=== PATIENT | male | born 1960 | race Caucasian/White ===

== ENCOUNTER 2021-01-01 11:31 | Inpatient (IN) | payer OTHER ==
[2021-01-01] MEDS ORDERED: Ondansetron 4 MG/2 ML SDV IVPUSH ONE (11:56)
[2021-01-01] MEDS ORDERED: Sodium Chloride 0.9% 1,000 ML IV ONE ×2 (11:56→14:31)
[2021-01-01] MEDS ORDERED: Ketorolac 30 MG/ML SDV IVPUSH ONE (11:56)
[2021-01-01] MEDS ORDERED: Morphine 4 MG/ML Syringe IVPUSH ONE (11:57)
--- NOTE | 2021-01-01 11:59 | PCM.EKG ---
#1 Interpretation EKG Date: 01/01/21 Time: 11:54 Rhythm: Other (sinus cliff) Rate (Beats/Min): 46 ST-T: Normal
--- NOTE | 2021-01-01 12:08 | EDM.PDOC ---
ED HPI GENERAL MEDICAL PROBLEM - General Chief Complaint: Abdominal Pain Stated Complaint: [facility] REF[facility] Time Seen by Provider: 01/01/21 11:31 Source of Information: Reports: Patient History Limitations: Reports: No Limitations - History of Present Illness INITIAL COMMENTS - FREE TEXT/NARRATIVE: HISTORY AND PHYSICAL: History of present illness: Patient is a 60-year-old male who presents to the ED today with concern of upper abdominal cramping that has been constant for 8 days and unable to eat/drink x 2 days due to pain and nausea. Patient states the cramping comes in waves and states that the pain is more intense with laying flat and better when sitting up. Patient states that when he leans over the counter is the most comfortable position he can get and so has been sleeping this way since 8 days ago. Patient states 8 days ago he was told he has diabetes and was started on insulin and Metformin as his sugar was 600 when he was evaluated at the emergency room at [facility] in [place]. Patient states that he was admitted overnight to get his blood sugars down and discharged on insulin and Metformin. Patient states that he thinks the Metformin is what is causing his issues. Patient states that he initially did have diarrhea when he had for start of Metformin, but this has improved but continues to have the upper abdominal cramping. Patient states the cramping results in a significantly decreased appetite and feeling nauseous but states that he has not vomited. Patient states the cramping will radiate to the back. Patient does not drink alcohol or use any substances. Patient denies fever, chills, chest pain, shortness of breath, or cough. Denies headache, neck stiff ness, change in vision, syncope, or near syncope. Denies vomiting, diarrhea, constipation, or dysuria. Has not noted any blood in urine or stool. Review of systems: As per history of present illness and below otherwise all systems reviewed and negative. Past medical history: As per history of present illness and as reviewed below otherwise noncontributory. Surgical history: As per history of present illness and as reviewed below otherwise noncontributory. Social history: See social history for further information Family history: As per history of present illness and as reviewed below otherwise noncontributory. Physical exam: General: Patient is alert, oriented, and in no acute distress. Patient laying comfortably on exam table, tired appearing, bradycardic 50bmp on exam otherwise vitally stable and reviewed by me. HEENT: Atraumatic, normocephalic, pupils equal and reactive bilaterally, negative for conjunctival pallor or scleral icterus, mucous membranes moist, TMs normal bilaterally, throat clear, neck supple, nontender, trachea midline. No drooling or trismus noted. No meningeal signs. No hot potato voice noted. Lungs: Clear to auscultation, breath sounds equal bilaterally, chest nontender. Heart: S1S2, regular rate and rhythm without overt murmur Abdomen: Exam of abdomen is limited due to body habitus. Otherwise, soft, nondistended, moderate epigastric tenderness on exam. Negative for masses or hepatosplenomegaly. Negative for costovertebral tenderness. Pelvis: Stable nontender. Genitourinary: Deferred. Rectal: Deferred. Skin: Intact, warm, dry. No lesions or rashes noted. Extremities: Atraumatic, negative for cords or calf pain. Neurovascular unremarkable. Neuro: Awake, alert, oriented. Cranial nerves II through XII unremarkable. Cerebellum unremarkable. Motor and sensory unremarkable throughout. Exam nonfocal. Notes: Upon arrival to the ED, patient is alert, and in no acute distress but he is tired appearing. He is bradycardic 45 to 50 bpm on exam but is otherwise vitally stable and asymptomatic for bradycardia. Patient does have moderate epigastric tenderness to palpation on exam. See Dr. Sosa's dictation for specific EKG interpretation. However, sinus bradycardia with no STEMI or acute signs of ischemia will perform cardiac evaluation as well as lipase and scan of patient's abdomen and pelvis. CBC is unremarkable, CMP is unremarkable. Lipase and amylase are normal. Urinalysis is clear for signs of infection. Troponin is negative. Abdominal pelvic CT scan does show peripancreatic fat stranding adjacent to the head of the pancreas with thickening of the adjacent duodenum. Findings consistent with pancreatitis. Hepatomegaly with hepatic steatosis. Patient has been unable to tolerate p.o. intake for 2 days so recommend admission to patient. He is agreeable. I did call and speak to Dr. Birch, hospitalist on-call, and thoroughly discussed patient's case. Will admit to inpatient on telemetry. Voices understanding and is agreeable to plan of care. Denies any further questions or concerns at this time. Diagnostics: EKG, CBC, CMP, UA, Lipase, Amylase, Trop, CXR, Abd/Pelvic W cont, COVID Therapeutics: NS, Zofran, Toradol, Morphine (patient has an allergy noted to codeine but states that he is taking morphine safely in the past), Dilaudid Impression: Acute pancreatitis Sinus bradycardia, asymptomatic Plan: Admit to observation and Dr. Birch on telemetry Definitive disposition and diagnosis as appropriate pending reevaluation and review of above. Upper Abdominal Pain Score (Numeric/FACES): 10 - Related Data Allergies Allergy/AdvReac Type Severity Reaction Status Date / Time codeine Allergy Vomiting Verified 01/01/21 16:31 Home Meds: Home Meds Insulin Detemir [Levemir] 1 injection SQ ASDIRECTED 01/01/21 [History] Losartan [Cozaar] 1 tab PO DAILY 01/01/21 [History] atenoloL [Atenolol] 1 tab PO DAILY 01/01/21 [History] Past Medical History Cardiovascular History: Reports: Hypertension Musculoskeletal History: Reports: Gout Endocrine/Metabolic History: Reports: Diabetes, Type II Social & Family History - Family History Family Medical History: No Pertinent Family History - Tobacco Use Tobacco Use Status *Q: Never Tobacco User - Recreational Drug Use Recreational Drug Use: No ED ROS GENERAL - Review of Systems Review Of Systems: Comprehensive ROS is negative, except as noted in HPI. ED EXAM, GENERAL - Physical Exam Exam: See Below (see dictation) Course - Vital Signs Last Recorded V/S: Last Vital Signs Temp 98.4 F 01/01/21 16:06 Pulse 45 L 01/01/21 16:06 Resp 15 01/01/21 16:06 BP 137/80 01/01/21 16:06 Pulse Ox 95 01/01/21 16:55 - Orders/Labs/Meds Orders: Active Orders 24 hr Category Date Time Status Admission Status [Patient Status] [ADT] Stat ADT 01/01/21 14:18 Active Medication Orders Dextrose/Water (50% Dextrose In Water 50 Ml Syringe) 50 ml IV ASDIRECTED PRN PRN Reason: Hypoglycemia Glucagon (Glucagon,Human Recombinant 1 Mg Vial) 1 mg IM ASDIRECTED PRN PRN Reason: Hypoglycemia Heparin Sodium (Porcine) (Heparin Sodium 5,000 Units/Ml Vial) 5,000 units SUBCUT Q8H YOUSUF Hydromorphone HCl (Hydromorphone 2 Mg/Ml Syringe) 1 mg IVPUSH Q3H PRN PRN Reason: Pain (severe 7-10) Lactated Ringer's (Ringers, Lactated) 1,000 mls @ 999 mls/hr IV ONETIME ONE Stop: 01/01/21 17:30 Lactated Ringer's (Ringers, Lactated) 1,000 mls @ 200 mls/hr IV Q5H YOUSUF Pantoprazole Sodium 40 mg/ (Sodium Chloride) 10 mls @ 200 mls/hr IV Q24H YOUSUF Insulin Aspart (Insulin Aspart 100 Units/Ml 3 Ml Pen) 0 unit SUBCUT Q6H YOUSUF; Protocol Ondansetron HCl (Ondansetron 4 Mg/2 Ml Sdv) 4 mg IVPUSH Q4H PRN PRN Reason: Nausea Sodium Chloride (Sodium Chloride 0.9% 2.5 Ml Syringe) 2.5 ml FLUSH ASDIRECTED PRN PRN Reason: Keep Vein Open Labs: Laboratory Tests 01/01/21 01/01/21 01/01/21 Range/Units 11:47 11:48 11:48 WBC 7.62 (4.0-11.0) K/uL RBC 4.86 (4.50-5.90) M/uL Hgb 15.1 (13.0-17.0) g/dL Hct 42.7 (38.0-50.0) % MCV 87.9 (80.0-98.0) fL MCH 31.1 (27.0-32.0) pg MCHC 35.4 (31.0-37.0) g/dL RDW Std Deviation 39.7 (28.0-62.0) fl RDW Coeff of Len 12 (11.0-15.0) % Plt Count 372 (150-400) K/uL MPV 9.90 (7.40-12.00) fL Neut % (Auto) 58.8 (48.0-80.0) % Lymph % (Auto) 26.6 (16.0-40.0) % [place] % (Auto) 11.2 (0.0-15.0) % Eos % (Auto) 3.1 (0.0-7.0) % Baso % (Auto) 0.3 (0.0-1.5) % Neut # (Auto) 4.5 (1.4-5.7) K/uL Lymph # (Auto) 2.0 (0.6-2.4) K/uL [place] # (Auto) 0.9 H (0.0-0.8) K/uL Eos # (Auto) 0.2 (0.0-0.7) K/uL Baso # (Auto) 0.0 (0.0-0.1) K/uL Nucleated RBC % 0.0 /100WBC Nucleated RBCs # 0 K/uL Sodium 136 (136-148) mmol/L Potassium 3.7 (3.5-5.1) mmol/L Chloride 99 (98-107) mmol/L Carbon Dioxide 30.4 (21.0-32.0) mmol/L BUN 14 (7.0-18.0) mg/dL Creatinine 1.1 (0.8-1.3) mg/dL Est Cr Clr Drug Dosing 67.60 mL/min Estimated GFR (MDRD) > 60.0 ml/min Glucose 183 H (74-106) mg/dL POC Glucose 167 H (70-99) mg/dL Calcium 9.1 (8.5-10.1) mg/dL Total Bilirubin 0.6 (0.2-1.0) mg/dL AST 35 (15-37) IU/L ALT 54 (14-63) IU/L Alkaline Phosphatase 113 (46-116) U/L Troponin I < 0.050 (0.000-0.056) ng/mL Total Protein 7.9 (6.4-8.2) g/dL Albumin 3.3 L (3.4-5.0) g/dL Globulin 4.6 H (2.6-4.0) g/dL Albumin/Globulin Ratio 0.7 L (0.9-1.6) Triglycerides (0-200) mg/dL Cholesterol (50-200) mg/dL LDL Cholesterol, Calc (60-180) mg/dL VLDL Cholesterol (5-55) mg/dL HDL Cholesterol (40-60) mg/dL Cholesterol/HDL Ratio (3.3-6.0) Amylase (25-115) U/L Lipase 103 (73-393) U/L Urine Color Urine Appearance Urine pH (5.0-8.0) Ur Specific [place] (1.001-1.035) Urine Protein (NEGATIVE) mg/dL Urine Glucose (UA) (NEGATIVE) mg/dL Urine Ketones (NEGATIVE) mg/dL Urine Occult Blood (NEGATIVE) Urine Nitrite (NEGATIVE) Urine Bilirubin (NEGATIVE) Urine Urobilinogen (<2.0) EU/dL Ur Leukocyte Esterase (NEGATIVE) Influenza Type A RNA (NEGATIVE) Influenza Type B RNA (NEGATIVE) SARS-CoV-2 RNA (YOSELIN) (NEGATIVE) 01/01/21 01/01/21 01/01/21 Range/Units 11:48 11:48 13:30 WBC (4.0-11.0) K/uL RBC (4.50-5.90) M/uL Hgb (13.0-17.0) g/dL Hct (38.0-50.0) % MCV (80.0-98.0) fL MCH (27.0-32.0) pg MCHC (31.0-37.0) g/dL RDW Std Deviation (28.0-62.0) fl RDW Coeff of Len (11.0-15.0) % Plt Count (150-400) K/uL MPV (7.40-12.00) fL Neut % (Auto) (48.0-80.0) % Lymph % (Auto) (16.0-40.0) % [place] % (Auto) (0.0-15.0) % Eos % (Auto) (0.0-7.0) % Baso % (Auto) (0.0-1.5) % Neut # (Auto) (1.4-5.7) K/uL Lymph # (Auto) (0.6-2.4) K/uL [place] # (Auto) (0.0-0.8) K/uL Eos # (Auto) (0.0-0.7) K/uL Baso # (Auto) (0.0-0.1) K/uL Nucleated RBC % /100WBC Nucleated RBCs # K/uL Sodium (136-148) mmol/L Potassium (3.5-5.1) mmol/L Chloride (98-107) mmol/L Carbon Dioxide (21.0-32.0) mmol/L BUN (7.0-18.0) mg/dL Creatinine (0.8-1.3) mg/dL Est Cr Clr Drug Dosing mL/min Estimated GFR (MDRD) ml/min Glucose (74-106) mg/dL POC Glucose (70-99) mg/dL Calcium (8.5-10.1) mg/dL Total Bilirubin (0.2-1.0) mg/dL AST (15-37) IU/L ALT (14-63) IU/L Alkaline Phosphatase (46-116) U/L Troponin I (0.000-0.056) ng/mL Total Protein (6.4-8.2) g/dL Albumin (3.4-5.0) g/dL Globulin (2.6-4.0) g/dL Albumin/Globulin Ratio (0.9-1.6) Triglycerides 149 (0-200) mg/dL Cholesterol 209 H (50-200) mg/dL LDL Cholesterol, Calc 141 (60-180) mg/dL VLDL Cholesterol 29 (5-55) mg/dL HDL Cholesterol 38 L (40-60) mg/dL Cholesterol/HDL Ratio 5.5 (3.3-6.0) Amylase 38 (25-115) U/L Lipase (73-393) U/L Urine Color YELLOW Urine Appearance CLEAR Urine pH 8.5 H (5.0-8.0) Ur Specific [place] 1.010 (1.001-1.035) Urine Protein NEGATIVE (NEGATIVE) mg/dL Urine Glucose (UA) NEGATIVE (NEGATIVE) mg/dL Urine Ketones NEGATIVE (NEGATIVE) mg/dL Urine Occult Blood NEGATIVE (NEGATIVE) Urine Nitrite NEGATIVE (NEGATIVE) Urine Bilirubin NEGATIVE (NEGATIVE) Urine Urobilinogen 0.2 (<2.0) EU/dL Ur Leukocyte Esterase NEGATIVE (NEGATIVE) Influenza Type A RNA (NEGATIVE) Influenza Type B RNA (NEGATIVE) SARS-CoV-2 RNA ([place]) (NEGATIVE) 01/01/21 Range/Units 14:26 WBC (4.0-11.0) K/uL RBC (4.50-5.90) M/uL Hgb (13.0-17.0) g/dL Hct (38.0-50.0) % MCV (80.0-98.0) fL MCH (27.0-32.0) pg MCHC (31.0-37.0) g/dL RDW Std Deviation (28.0-62.0) fl RDW Coeff of Len (11.0-15.0) % Plt Count (150-400) K/uL MPV (7.40-12.00) fL Neut % (Auto) (48.0-80.0) % Lymph % (Auto) (16.0-40.0) % [place] % (Auto) (0.0-15.0) % Eos % (Auto) (0.0-7.0) % Baso % (Auto) (0.0-1.5) % Neut # (Auto) (1.4-5.7) K/uL Lymph # (Auto) (0.6-2.4) K/uL [place] # (Auto) (0.0-0.8) K/uL Eos # (Auto) (0.0-0.7) K/uL Baso # (Auto) (0.0-0.1) K/uL Nucleated RBC % /100WBC Nucleated RBCs # K/uL Sodium (136-148) mmol/L Potassium (3.5-5.1) mmol/L Chloride (98-107) mmol/L Carbon Dioxide (21.0-32.0) mmol/L BUN (7.0-18.0) mg/dL Creatinine (0.8-1.3) mg/dL Est Cr Clr Drug Dosing mL/min Estimated GFR (MDRD) ml/min Glucose (74-106) mg/dL POC Glucose (70-99) mg/dL Calcium (8.5-10.1) mg/dL Total Bilirubin (0.2-1.0) mg/dL AST (15-37) IU/L ALT (14-63) IU/L Alkaline Phosphatase (46-116) U/L Troponin I (0.000-0.056) ng/mL Total Protein (6.4-8.2) g/dL Albumin (3.4-5.0) g/dL Globulin (2.6-4.0) g/dL Albumin/Globulin Ratio (0.9-1.6) Triglycerides (0-200) mg/dL Cholesterol (50-200) mg/dL LDL Cholesterol, Calc (60-180) mg/dL VLDL Cholesterol (5-55) mg/dL HDL Cholesterol (40-60) mg/dL Cholesterol/HDL Ratio (3.3-6.0) Amylase (25-115) U/L Lipase (73-393) U/L Urine Color Urine Appearance Urine pH (5.0-8.0) Ur Specific [place] (1.001-1.035) Urine Protein (NEGATIVE) mg/dL Urine Glucose (UA) (NEGATIVE) mg/dL Urine Ketones (NEGATIVE) mg/dL Urine Occult Blood (NEGATIVE) Urine Nitrite (NEGATIVE) Urine Bilirubin (NEGATIVE) Urine Urobilinogen (<2.0) EU/dL Ur Leukocyte Esterase (NEGATIVE) Influenza Type A RNA NEGATIVE (NEGATIVE) Influenza Type B RNA NEGATIVE (NEGATIVE) SARS-CoV-2 RNA ([place]IN) NEGATIVE (NEGATIVE) Meds: Medications Generic Name Dose Route Start Last Admin Trade Name Freq PRN Reason Stop Dose Admin Dextrose/Water 50 ml 01/01/21 16:09 50% Dextrose In Water 50 Ml Syringe IV ASDIRECTED PRN Hypoglycemia Glucagon 1 mg 01/01/21 16:09 Glucagon,Human Recombinant 1 Mg Vial IM ASDIRECTED PRN Hypoglycemia Heparin Sodium (Porcine) 5,000 units 01/01/21 16:30 Heparin Sodium 5,000 Units/Ml Vial SUBCUT Q8H YOUSUF Hydromorphone HCl 1 mg 01/01/21 16:05 Hydromorphone 2 Mg/Ml Syringe IVPUSH Q3H PRN Pain (severe 7-10) Lactated Ringer's 1,000 mls @ 999 mls/hr 01/01/21 16:30 Ringers, Lactated IV 01/01/21 17:30 ONETIME ONE Lactated Ringer's 1,000 mls @ 200 mls/hr 01/01/21 17:30 Ringers, Lactated IV Q5H YOUSUF Pantoprazole Sodium 40 mg/ 10 mls @ 200 mls/hr 01/01/21 16:45 Sodium Chloride IV Q24H YOUSUF Insulin Aspart 0 unit 01/01/21 18:00 Insulin Aspart 100 Units/Ml 3 Ml Pen SUBCUT Q6H YOUSUF Protocol Ondansetron HCl 4 mg 01/01/21 16:05 Ondansetron 4 Mg/2 Ml Sdv IVPUSH Q4H PRN Nausea Sodium Chloride 2.5 ml 01/01/21 16:05 Sodium Chloride 0.9% 2.5 Ml Syringe FLUSH ASDIRECTED PRN Keep Vein Open Discontinued Medications Generic Name Dose Route Start Last Admin Trade Name Analilia PRN Reason Stop Dose Admin Hydromorphone HCl 0.5 mg 01/01/21 14:31 01/01/21 14:40 Hydromorphone 2 Mg/Ml Syringe IVPUSH 01/01/21 14:32 0.5 mg ONETIME ONE Administration Sodium Chloride 1,000 mls @ 999 mls/hr 01/01/21 11:56 01/01/21 12:08 Normal Saline IV 01/01/21 12:56 999 mls/hr BOLUS ONE Administration Sodium Chloride 1,000 mls @ 999 mls/hr 01/01/21 14:31 01/01/21 14:40 Normal Saline IV 01/01/21 15:31 999 mls/hr STAT ONE Administration Ketorolac Tromethamine 30 mg 01/01/21 11:56 01/01/21 12:08 Ketorolac 30 Mg/Ml Sdv IVPUSH 01/01/21 11:57 30 mg ONETIME ONE Administration Morphine Sulfate 4 mg 01/01/21 11:57 01/01/21 12:08 Morphine 4 Mg/Ml Syringe IVPUSH 01/01/21 11:58 4 mg ONETIME ONE Administration Ondansetron HCl 4 mg 01/01/21 11:56 01/01/21 12:08 Ondansetron 4 Mg/2 Ml Sdv IVPUSH 01/01/21 11:57 4 mg ONETIME ONE Administration Departure - Departure Time of Disposition: 14:34 Disposition: Admitted As Inpatient 67 Clinical Impression: Sinus bradycardia Acute pancreatitis Qualifiers: Pancreatitis type: unspecified pancreatitis type Acute pancreatitis complication: unspecified Qualified Code(s): K85.90 - Acute pancreatitis without necrosis or infection, unspecified - Discharge Information Sepsis Event Note (ED) - Evaluation Sepsis Screening Result: No Definite Risk - Focused Exam Vital Signs: Vital Signs Temp Pulse Resp BP Pulse Ox 01/01/21 15:06 58 L 17 144/64 H 96 01/01/21 14:32 49 L 17 128/66 98 01/01/21 13:48 50 L 16 134/70 97 01/01/21 13:21 47 L 17 139/76 96 01/01/21 12:26 46 L 18 126/82 95 01/01/21 11:51 97.3 F 48 L 17 162/81 H 95 - My Orders Last 24 Hours: My Active Orders 01/01/21 14:18 Admission Status [Patient Status] [ADT] Stat - Assessment/Plan Last 24 Hours: My Active Orders 01/01/21 14:18 Admission Status [Patient Status] [ADT] Stat
[2021-01-01 12:33] LABS: BLOOD UREA NITROGEN,BUN 14 mg/dL (7.0-18.0); CARBON DIOXIDE,CO2 30.4 mmol/L (21.0-32.0); CHLORIDE,CL 99 mmol/L (98-107); GLUCOSE RANDOM 183 mg/dL (74-106); LIPASE 103 U/L (73-393); POTASSIUM,K 3.7 mmol/L (3.5-5.1); SODIUM,NA 136 mmol/L (136-148)
--- NOTE | 2021-01-01 13:08 | CR ---
INDICATION: epigastric pain TECHNIQUE: Chest 1 view. COMPARISON: 10/28/19 FINDINGS: Cardiovascular and mediastinum: Heart size and vasculature are normal in caliber and appearance. Mediastinum is within normal limits. Lungs and pleural space: Lungs are clear. No sign of infiltrate or mass. No sign of pleural effusion. No pneumothorax. Bones and soft tissues: No significant findings. IMPRESSION: Unremarkable chest. Dictated by: Carlos Pinto MD @ 01/01/2021 13:06:24 (Electronically Signed)
--- NOTE | 2021-01-01 13:50 | CT ---
INDICATION: Upper abdominal pain x8 days TECHNIQUE: CT abdomen and pelvis acquired with IV contrast. 100 cc Isovue 370 COMPARISON: None FINDINGS: Lower chest: Unremarkable. Liver: Hepatomegaly with hepatic steatosis. Spleen: Unremarkable. Pancreas: Peripancreatic fat passing adjacent to the pancreatic head with thickening of the adjacent duodenum. Findings consistent with pancreatitis. Correlate with abnormal amylase and lipase. Gallbladder and bile ducts: Unremarkable. Kidneys: Unremarkable. Adrenal glands: Unremarkable. GI tract: Thickening of 2nd portion of duodenum. Appendix is normal. Vascular structures: Unremarkable. Lymph nodes: Unremarkable. Miscellaneous: Unremarkable. No free air or significant free fluid. Pelvic Organs: Unremarkable. Bones: Unremarkable for age. IMPRESSION: Peripancreatic fat stranding adjacent to the head of the pancreas with thickening of the adjacent duodenum. Findings consistent with pancreatitis. Correlate with abnormal amylase lipase. Hepatomegaly with hepatic steatosis. Please note that all CT scans at this facility use dose modulation, iterative reconstruction, and/or weight-based dosing when appropriate to reduce radiation dose to as low as reasonably achievable. Dictated by Carlos Pinto MD @ 01/01/2021 1:48:[address] Carlos Pinto @ Jan 01 2021 1:48PM
[2021-01-01] MEDS ORDERED: HYDROmorphone 2 MG/ML Syringe IVPUSH ONE (14:31)
[2021-01-01 15:12] LABS: CORONAVIRUS COVID-19 NAA NEGATIVE (NEGATIVE); INFLUENZA A NAA NEGATIVE (NEGATIVE); INFLUENZA B NAA NEGATIVE (NEGATIVE)
--- NOTE | 2021-01-01 15:55 | PCM.HP.2 ---
H&P History of Present Illness - General Date of Service: 01/01/21 Admit Problem/Dx: Admission Diagnosis/Problem Admission Diagnosis/Problem Acute pancreatitis Source of Information: Patient History Limitations: Reports: No Limitations - History of Present Illness Initial Comments - Free Text/Narative: This 60-year-old male with past medical history of HTN, gout and diabetes type 2 presented to the ED with complaints of upper abdominal cramping has been constant for about 8 days. He has been unable to eat or drink for the past 2 days due to pain and nausea. He reports the pain is coming in waves of cramping and that is more intense with laying flat and better when sitting up. He is a new diabetic and was placed on insulin and Metformin as his blood sugar was over 600 and was evaluated in [place]. He feels as though the Metformin is causing these concerns. He did report he had diarrhea initially and then the pain started. He reports he has had a decrease in appetite and feeling nauseated but has not vomited. He denies any fevers chills, chest pain, shortness of breath or cough. He denies any headache. Denies any diarrhea constipation dysuria or black or bloody stools. Reports that he does not drink and has not drink for 12 years. No tobacco use and no recreational drug use. In the ER lab work otherwise unremarkable blood sugar slightly elevated. Lipid panel obtained which shows triglycerides 149 total cholesterol 209 LDL 141 HDL 38, lipase 103 amylase 38. No transaminitis or hyperbilirubinemia noted. BUN and creatinine stable mild hyperglycemia noted at 183. UA negative Covid and influenza swab negative. CT of the abdomen pelvis was obtained which revealed thickening second portion of the duodenum peripancreatic fat adjacent to the pancreatic head with thickening of adjacent duodenum hepatomegaly with hepatic steatosis noted. Findings suggestive of acute pancreatitis. Chest x-ray obtained which reveals no acute cardiopulmonary process. Vital signs in the ER blood pressure is otherwise stable heart rate noted to be high 40s to 50s. Patient is on atenolol 50 mg daily. Patient denies any associated symptoms or dizziness with his heart rate. He was treated with 2 L normal saline boluses along with Toradol morphine Zofran and Dilaudid for pain control. He will be admitted for acute pancreatitis. PCP [facility] Upper Abdominal Pain Score (Numeric/FACES): 10 - Related Data Allergies/Adverse Reactions: Allergies Allergy/AdvReac Type Severity Reaction Status Date / Time codeine Allergy Vomiting Verified 01/01/21 11:51 Home Medications: Home Meds Insulin Detemir [Levemir] 1 injection SQ ASDIRECTED 01/01/21 [History] Losartan [Cozaar] 1 tab PO DAILY 01/01/21 [History] atenoloL [Atenolol] 1 tab PO DAILY 01/01/21 [History] metFORMIN [Glucophage] 500 mg PO BID 01/01/21 [History] Past Medical History Cardiovascular History: Reports: Hypertension. Denies: Afib, Blood Clots/V TE/DVT, CAD Respiratory History: Reports: None Gastrointestinal History: Reports: None Genitourinary History: Reports: None Musculoskeletal History: Reports: Gout Neurological History: Reports: None. Denies: CVA Endocrine/Metabolic History: Reports: Diabetes, Type II, Hypothyroidism, Obesity/BMI 30+ - Infectious Disease History Infectious Disease History: Reports: None - Past Surgical History Cardiovascular Surgical History: Reports: None Respiratory Surgical History: Reports: None GI Surgical History: Reports: None Male Surgical History: Reports: None Endocrine Surgical History: Reports: None Musculoskeletal Surgical History: Reports: None Social & Family History - Family History Cardiac: Reports: [place] (Father of [place] in his 50s) GI: Denies: Cholelithiasis - Tobacco Use Tobacco Use Status *Q: Never Tobacco User - Alcohol Use Alcohol Use History: No - Recreational Drug Use Recreational Drug Use: No - Living Situation & Occupation Living situation: Reports: Occupation: Employed H&P Review of Systems - Review of Systems: Review Of Systems: See Below General: Reports: Malaise. Denies: Fever, Chills HEENT: Reports: No Symptoms. Denies: Headaches, Sinus Congestion, Sore Throat, Vertigo Pulmonary: Reports: No Symptoms. Denies: Shortness of Breath Cardiovascular: Reports: No Symptoms. Denies: Chest Pain Gastrointestinal: Reports: Abdominal Pain (Epigastric), Decreased Appetite, Distension, Nausea. Denies: Black Stool, Bloody Stool, Constipation, Diarrhea, Vomiting Genitourinary: Reports: No Symptoms. Denies: Dysuria, Frequency, Burning Musculoskeletal: Reports: No Symptoms. Denies: Neck Pain Skin: Reports: No Symptoms. Denies: Wound Psychiatric: Reports: No Symptoms Neurological: Reports: No Symptoms Hematologic/Lymphatic: Reports: No Symptoms Immunologic: Reports: No Symptoms Exam - Exam Exam: See Below - Vital Signs Vital Signs: Last Vital Signs Temp 97.3 F 01/01/21 11:51 Pulse 49 L 01/01/21 15:39 Resp 17 01/01/21 15:06 BP 157/55 H 01/01/21 15:39 Pulse Ox 96 01/01/21 15:39 Weight: 127.006 kg - Exam Quality Assessment: No: Supplemental Oxygen General: Alert, Oriented, Cooperative, Mild Distress (Mild abdominal pain) HEENT: Conjunctiva Clear, Posterior Pharynx Clear. No: Mucosa Moist & [place] (Dry) Neck: Supple, Trachea Midline Lungs: Clear to Auscultation, Normal Respiratory Effort Cardiovascular: Regular Rate, Regular Rhythm GI/Abdominal Exam: Normal Bowel Sounds, Soft, Distended, Tender (Epigastric) Back Exam: Normal Inspection, Full Range of Motion Extremities: Normal Inspection, Normal Range of Motion, Non-Tender, No Pedal Edema Neuro Extensive - Mental Status: Alert, Oriented x3 Neuro Extensive - Motor, Sensory, Reflexes: CN II-XII Intact Psychiatric: Alert, Normal Affect, Normal Mood - Patient Data Lab Results Last 24 hrs: Laboratory Results - last 24 hr 01/01/21 01/01/21 01/01/21 Range/Units 11:47 11:48 11:48 WBC 7.62 (4.0-11.0) K/uL RBC 4.86 (4.50-5.90) M/uL Hgb 15.1 (13.0-17.0) g/dL Hct 42.7 (38.0-50.0) % MCV 87.9 (80.0-98.0) fL MCH 31.1 (27.0-32.0) pg MCHC 35.4 (31.0-37.0) g/dL RDW Std Deviation 39.7 (28.0-62.0) fl RDW Coeff of Len 12 (11.0-15.0) % Plt Count 372 (150-400) K/uL MPV 9.90 (7.40-12.00) fL Neut % (Auto) 58.8 (48.0-80.0) % Lymph % (Auto) 26.6 (16.0-40.0) % [place] % (Auto) 11.2 (0.0-15.0) % Eos % (Auto) 3.1 (0.0-7.0) % Baso % (Auto) 0.3 (0.0-1.5) % Neut # (Auto) 4.5 (1.4-5.7) K/uL Lymph # (Auto) 2.0 (0.6-2.4) K/uL [place] # (Auto) 0.9 H (0.0-0.8) K/uL Eos # (Auto) 0.2 (0.0-0.7) K/uL Baso # (Auto) 0.0 (0.0-0.1) K/uL Nucleated RBC % 0.0 /100WBC Nucleated RBCs # 0 K/uL Sodium 136 (136-148) mmol/L Potassium 3.7 (3.5-5.1) mmol/L Chloride 99 (98-107) mmol/L Carbon Dioxide 30.4 (21.0-32.0) mmol/L BUN 14 (7.0-18.0) mg/dL Creatinine 1.1 (0.8-1.3) mg/dL Est Cr Clr Drug Dosing 67.60 mL/min Estimated GFR (MDRD) > 60.0 ml/min Glucose 183 H (74-106) mg/dL POC Glucose 167 H (70-99) mg/dL Calcium 9.1 (8.5-10.1) mg/dL Total Bilirubin 0.6 (0.2-1.0) mg/dL AST 35 (15-37) IU/L ALT 54 (14-63) IU/L Alkaline Phosphatase 113 (46-116) U/L Troponin I < 0.050 (0.000-0.056) ng/mL Total Protein 7.9 (6.4-8.2) g/dL Albumin 3.3 L (3.4-5.0) g/dL Globulin 4.6 H (2.6-4.0) g/dL Albumin/Globulin Ratio 0.7 L (0.9-1.6) Triglycerides (0-200) mg/dL Cholesterol (50-200) mg/dL LDL Cholesterol, Calc (60-180) mg/dL VLDL Cholesterol (5-55) mg/dL HDL Cholesterol (40-60) mg/dL Cholesterol/HDL Ratio (3.3-6.0) Amylase (25-115) U/L Lipase 103 (73-393) U/L Urine Color Urine Appearance Urine pH (5.0-8.0) Ur Specific [place] (1.001-1.035) Urine Protein (NEGATIVE) mg/dL Urine Glucose (UA) (NEGATIVE) mg/dL Urine Ketones (NEGATIVE) mg/dL Urine Occult Blood (NEGATIVE) Urine Nitrite (NEGATIVE) Urine Bilirubin (NEGATIVE) Urine Urobilinogen (<2.0) EU/dL Ur Leukocyte Esterase (NEGATIVE) Influenza Type A RNA (NEGATIVE) Influenza Type B RNA (NEGATIVE) SARS-CoV-2 RNA ([place]) (NEGATIVE) 01/01/21 01/01/21 01/01/21 Range/Units 11:48 11:48 13:30 WBC (4.0-11.0) K/uL RBC (4.50-5.90) M/uL Hgb (13.0-17.0) g/dL Hct (38.0-50.0) % MCV (80.0-98.0) fL MCH (27.0-32.0) pg MCHC (31.0-37.0) g/dL RDW Std Deviation (28.0-62.0) fl RDW Coeff of Len (11.0-15.0) % Plt Count (150-400) K/uL MPV (7.40-12.00) fL Neut % (Auto) (48.0-80.0) % Lymph % (Auto) (16.0-40.0) % [place] % (Auto) (0.0-15.0) % Eos % (Auto) (0.0-7.0) % Baso % (Auto) (0.0-1.5) % Neut # (Auto) (1.4-5.7) K/uL Lymph # (Auto) (0.6-2.4) K/uL [place] # (Auto) (0.0-0.8) K/uL Eos # (Auto) (0.0-0.7) K/uL Baso # (Auto) (0.0-0.1) K/uL Nucleated RBC % /100WBC Nucleated RBCs # K/uL Sodium (136-148) mmol/L Potassium (3.5-5.1) mmol/L Chloride (98-107) mmol/L Carbon Dioxide (21.0-32.0) mmol/L BUN (7.0-18.0) mg/dL Creatinine (0.8-1.3) mg/dL Est Cr Clr Drug Dosing mL/min Estimated GFR (MDRD) ml/min Glucose (74-106) mg/dL POC Glucose (70-99) mg/dL Calcium (8.5-10.1) mg/dL Total Bilirubin (0.2-1.0) mg/dL AST (15-37) IU/L ALT (14-63) IU/L Alkaline Phosphatase (46-116) U/L Troponin I (0.000-0.056) ng/mL Total Protein (6.4-8.2) g/dL Albumin (3.4-5.0) g/dL Globulin (2.6-4.0) g/dL Albumin/Globulin Ratio (0.9-1.6) Triglycerides 149 (0-200) mg/dL Cholesterol 209 H (50-200) mg/dL LDL Cholesterol, Calc 141 (60-180) mg/dL VLDL Cholesterol 29 (5-55) mg/dL HDL Cholesterol 38 L (40-60) mg/dL Cholesterol/HDL Ratio 5.5 (3.3-6.0) Amylase 38 (25-115) U/L Lipase (73-393) U/L Urine Color YELLOW Urine Appearance CLEAR Urine pH 8.5 H (5.0-8.0) Ur Specific [place] 1.010 (1.001-1.035) Urine Protein NEGATIVE (NEGATIVE) mg/dL Urine Glucose (UA) NEGATIVE (NEGATIVE) mg/dL Urine Ketones NEGATIVE (NEGATIVE) mg/dL Urine Occult Blood NEGATIVE (NEGATIVE) Urine Nitrite NEGATIVE (NEGATIVE) Urine Bilirubin NEGATIVE (NEGATIVE) Urine Urobilinogen 0.2 (<2.0) EU/dL Ur Leukocyte Esterase NEGATIVE (NEGATIVE) Influenza Type A RNA (NEGATIVE) Influenza Type B RNA (NEGATIVE) SARS-CoV-2 RNA ([place]) (NEGATIVE) 01/01/21 Range/Units 14:26 WBC (4.0-11.0) K/uL RBC (4.50-5.90) M/uL Hgb (13.0-17.0) g/dL Hct (38.0-50.0) % MCV (80.0-98.0) fL MCH (27.0-32.0) pg MCHC (31.0-37.0) g/dL RDW Std Deviation (28.0-62.0) fl RDW Coeff of Len (11.0-15.0) % Plt Count (150-400) K/uL MPV (7.40-12.00) fL Neut % (Auto) (48.0-80.0) % Lymph % (Auto) (16.0-40.0) % [place] % (Auto) (0.0-15.0) % Eos % (Auto) (0.0-7.0) % Baso % (Auto) (0.0-1.5) % Neut # (Auto) (1.4-5.7) K/uL Lymph # (Auto) (0.6-2.4) K/uL [place] # (Auto) (0.0-0.8) K/uL Eos # (Auto) (0.0-0.7) K/uL Baso # (Auto) (0.0-0.1) K/uL Nucleated RBC % /100WBC Nucleated RBCs # K/uL Sodium (136-148) mmol/L Potassium (3.5-5.1) mmol/L Chloride (98-107) mmol/L Carbon Dioxide (21.0-32.0) mmol/L BUN (7.0-18.0) mg/dL Creatinine (0.8-1.3) mg/dL Est Cr Clr Drug Dosing mL/min Estimated GFR (MDRD) ml/min Glucose (74-106) mg/dL POC Glucose (70-99) mg/dL Calcium (8.5-10.1) mg/dL Total Bilirubin (0.2-1.0) mg/dL AST (15-37) IU/L ALT (14-63) IU/L Alkaline Phosphatase (46-116) U/L Troponin I (0.000-0.056) ng/mL Total Protein (6.4-8.2) g/dL Albumin (3.4-5.0) g/dL Globulin (2.6-4.0) g/dL Albumin/Globulin Ratio (0.9-1.6) Triglycerides (0-200) mg/dL Cholesterol (50-200) mg/dL LDL Cholesterol, Calc (60-180) mg/dL VLDL Cholesterol (5-55) mg/dL HDL Cholesterol (40-60) mg/dL Cholesterol/HDL Ratio (3.3-6.0) Amylase (25-115) U/L Lipase (73-393) U/L Urine Color Urine Appearance Urine pH (5.0-8.0) Ur Specific [place] (1.001-1.035) Urine Protein (NEGATIVE) mg/dL Urine Glucose (UA) (NEGATIVE) mg/dL Urine Ketones (NEGATIVE) mg/dL Urine Occult Blood (NEGATIVE) Urine Nitrite (NEGATIVE) Urine Bilirubin (NEGATIVE) Urine Urobilinogen (<2.0) EU/dL Ur Leukocyte Esterase (NEGATIVE) Influenza Type A RNA NEGATIVE (NEGATIVE) Influenza Type B RNA NEGATIVE (NEGATIVE) SARS-CoV-2 RNA ([place]) NEGATIVE (NEGATIVE) Result Diagrams: 01/01/21 11:48 01/01/21 11:48 Sepsis Event Note - Evaluation Sepsis Screening Result: No Definite Risk - Focused Exam Vital Signs: Vital Signs Temp Pulse Resp BP Pulse Ox 01/01/21 15:39 49 L 157/55 H 96 01/01/21 15:06 58 L 17 144/64 H 96 01/01/21 14:32 49 L 17 128/66 98 01/01/21 13:48 50 L 16 134/70 97 01/01/21 13:21 47 L 17 139/76 96 01/01/21 12:26 46 L 18 126/82 95 01/01/21 11:51 97.3 F 48 L 17 162/81 H 95 - Problem List (1) Acute pancreatitis SNOMED Code(s): 145127804 ICD Code: K85.90 - ACUTE PANCREATITIS WITHOUT NECROSIS OR INFECTION, UNSP Status: Acute Current Visit: Yes Qualifiers: Pancreatitis type: unspecified pancreatitis type Acute pancreatitis complication: unspecified Qualified Code(s): K85.90 - Acute pancreatitis without necrosis or infection, unspecified (2) Sinus bradycardia SNOMED Code(s): 81973499 ICD Code: R00.1 - BRADYCARDIA, UNSPECIFIED Status: Acute Current Visit: Yes (3) Obesity SNOMED Code(s): 521574773, 038643721 ICD Code: E66.9 - OBESITY, UNSPECIFIED Status: Chronic Current Visit: Yes (4) DM type 2 (diabetes mellitus, type 2) SNOMED Code(s): 61445738 ICD Code: E11.9 - TYPE 2 DIABETES MELLITUS WITHOUT COMPLICATIONS Status: Chronic Current Visit: Yes (5) Gout SNOMED Code(s): 63658687 ICD Code: M10.9 - GOUT, UNSPECIFIED Status: Chronic Current Visit: Yes (6) Hypertension SNOMED Code(s): 64306624 ICD Code: I10 - ESSENTIAL (PRIMARY) HYPERTENSION Status: Chronic Current Visit: Yes Problem List Initiated/Reviewed/Updated: Yes Orders Last 24hrs: Active Orders 24 hr Category Date Time Status Admission Status [Patient Status] [ADT] Stat ADT 01/01/21 14:18 Active Blood Glucose Check, Bedside [RC] ONETIME Care 01/01/21 11:53 Active EKG 12 Lead [EKG Documentation Completion] [RC] STAT Care 01/01/21 11:53 Active Abdomen Ltd [US] Urgent Exams 01/01/21 14:30 Taken Assessment/Plan Comment:: This 60-year-old male admitted with acute pancreatitis 1. Acute pancreatitis -We will give 1 more liter of LR -Continue LR 200 mL/h -Bowel rest -Dilaudid for pain control as needed -Zofran for nausea as needed -Monitor electrolytes -Protonix daily -Right upper quadrant ultrasound pending -Lipid panel normal -This pancreatitis could likely be idiopathic, viral and or medication induced due to recent start of Metformin. 2. Bradycardia -Asymptomatic -Monitor on telemetry -Hold atenolol 3. DM type II -Newly diagnosed and started on Metformin and insulin -Stop Metformin -Continue insulin -Due to n.p.o. we will check blood sugars every 6 hours and have NovoLog sliding scale per protocol 4. Hypertension -Blood pressure slightly elevated now likely secondary to pain -We will hold atenolol consider starting SPIKE if needed. VTE prophylaxis: Heparin GI prophylaxis: Protonix CODE STATUS: Full code Dispo: 2 to 3 days pending improvement
[2021-01-01] MEDS ORDERED: Ondansetron 4 MG/2 ML SDV IVPUSH PRN (16:05)
[2021-01-01] MEDS ORDERED: Sodium Chloride 0.9% 2.5 ML Syringe FLUSH PRN (16:05)
[2021-01-01] MEDS ORDERED: 50% Dextrose in Water 50 ML Syringe IV PRN (16:09)
[2021-01-01] MEDS ORDERED: Glucagon,Human Recombinant 1 MG Vial IM PRN (16:09)
[2021-01-01] MEDS ORDERED: Pantoprazole 40 MG Vial IV SCH (16:15)
--- NOTE | 2021-01-01 16:15 | US ---
INDICATION: Pancreatitis TECHNIQUE: Ultrasound abdomen limited. Sonographic images of the right upper quadrant were obtained using phillips-scale and color Doppler images. COMPARISON: None FINDINGS: Liver: Hepatomegaly at 19.3 centimeters with diffuse fatty infiltration. No masses. No intrahepatic biliary dilatation. Gallbladder: No stones or sludge. Normal wall thickness. No pericholecystic fluid. Common bile duct: 2 mm. Pancreas: Grossly normal but suboptimally visualized. Right kidney: 10.5 cm. Normal echotexture and cortex. No masses, stones, or hydronephrosis. Vasculature: Proximal abdominal aorta and IVC are normal. IMPRESSION: The pancreas is grossly normal but suboptimally visualized. Hepatomegaly with diffuse fatty infiltration. Dictated by Carlos Pinto MD @ 01/01/2021 4:13:[address] Carlos Pinto @ Jan 01 2021 4:13PM
[2021-01-01] MEDS ORDERED: Lactated Ringers 1,000 ML IV ONE (16:30)
[2021-01-01] MEDS: Heparin Sodium 5,000 Units/ML Vial SUBCUT SCH (17:15)
[2021-01-01] MEDS: HYDROmorphone 2 MG/ML Syringe IVPUSH PRN ×2 (17:15→21:00)
[2021-01-01] MEDS: Pantoprazole 40 MG in Sodium Chloride 0.9% 10 ML IV SCH (17:16)
[2021-01-01] MEDS: Insulin Aspart 100 Units/ML 3 ML Pen SUBCUT SCH (17:18)
[2021-01-01] MEDS ORDERED: Iopamidol 755 MG/ML 500 ML Multipack Bottle IVPUSH STA (17:26)
[2021-01-01] MEDS: Lactated Ringers 1,000 ML IV SCH ×2 (17:42→22:34)
[2021-01-01] MEDS: atorvaSTATin 40 MG Tab PO SCH (20:04)
[2021-01-02] MEDS: Acetaminophen 325 MG Tab PO PRN ×2 (00:06→05:55)
[2021-01-02] MEDS: Heparin Sodium 5,000 Units/ML Vial SUBCUT SCH ×4 (00:08→23:29)
[2021-01-02] MEDS: Insulin Aspart 100 Units/ML 3 ML Pen SUBCUT SCH ×4 (00:14→18:00)
[2021-01-02] MEDS: HYDROmorphone 2 MG/ML Syringe IVPUSH PRN (00:18)
[2021-01-02] MEDS: Lactated Ringers 1,000 ML IV SCH ×5 (03:25→23:30)
[2021-01-02 06:20] LABS: BLOOD UREA NITROGEN,BUN 8 mg/dL (7.0-18.0); CARBON DIOXIDE,CO2 28.5 mmol/L (21.0-32.0); CHLORIDE,CL 103 mmol/L (98-107); GLUCOSE RANDOM 233 mg/dL (74-106); LIPASE 82 U/L (73-393); POTASSIUM,K 3.7 mmol/L (3.5-5.1); SODIUM,NA 137 mmol/L (136-148)
[2021-01-02] MEDS ORDERED: HYDROmorphone 1 MG/ML Syringe IVPUSH PRN (07:30)
--- NOTE | 2021-01-02 07:56 | PCM.PN ---
- General Info Date of Service: 01/02/21 Admission Dx/Problem (Free Text): Admission Diagnosis/Problem Admission Diagnosis/Problem Acute pancreatitis Subjective Update: Feeling improved today. Denies any abdominal pain. Reports he is got headache from Dilaudid and does not want it anymore. Reports he did not sleep well with the bed. Denies any chest pain shortness of breath. He is hoping to try clear liquid diet today. Functional Status: Reports: Ambulating, Urinating. Denies: Pain Controlled (Headache) - Review of Systems HEENT: Reports: Headaches. Denies: Sore Throat, Visual Changes Pulmonary: Reports: No Symptoms. Denies: Shortness of Breath Cardiovascular: Reports: No Symptoms. Denies: Chest Pain Gastrointestinal: Reports: No Symptoms. Denies: Abdominal Pain, Nausea, Vomiting Genitourinary: Reports: No Symptoms. Denies: Dysuria, Frequency, Burning Musculoskeletal: Reports: No Symptoms Skin: Reports: No Symptoms Neurological: Reports: No Symptoms Psychiatric: Reports: No Symptoms - Patient Data Vitals - Most Recent: Last Vital Signs Temp 97.4 F 01/02/21 00:01 Pulse 50 L 01/02/21 00:01 Resp 16 01/02/21 00:01 BP 141/78 H 01/02/21 00:01 Pulse Ox 95 01/02/21 00:01 Weight - Most Recent: 125.917 kg Lab Results Last 24 Hours: Laboratory Results - last 24 hr 01/01/21 01/01/21 01/01/21 Range/Units 11:47 11:48 11:48 WBC 7.62 (4.0-11.0) K/uL RBC 4.86 (4.50-5.90) M/uL Hgb 15.1 (13.0-17.0) g/dL Hct 42.7 (38.0-50.0) % MCV 87.9 (80.0-98.0) fL MCH 31.1 (27.0-32.0) pg MCHC 35.4 (31.0-37.0) g/dL RDW Std Deviation 39.7 (28.0-62.0) fl RDW Coeff of Len 12 (11.0-15.0) % Plt Count 372 (150-400) K/uL MPV 9.90 (7.40-12.00) fL Neut % (Auto) 58.8 (48.0-80.0) % Lymph % (Auto) 26.6 (16.0-40.0) % Vernon % (Auto) 11.2 (0.0-15.0) % Eos % (Auto) 3.1 (0.0-7.0) % Baso % (Auto) 0.3 (0.0-1.5) % Neut # (Auto) 4.5 (1.4-5.7) K/uL Lymph # (Auto) 2.0 (0.6-2.4) K/uL Vernon # (Auto) 0.9 H (0.0-0.8) K/uL Eos # (Auto) 0.2 (0.0-0.7) K/uL Baso # (Auto) 0.0 (0.0-0.1) K/uL Nucleated RBC % 0.0 /100WBC Nucleated RBCs # 0 K/uL Sodium 136 (136-148) mmol/L Potassium 3.7 (3.5-5.1) mmol/L Chloride 99 (98-107) mmol/L Carbon Dioxide 30.4 (21.0-32.0) mmol/L BUN 14 (7.0-18.0) mg/dL Creatinine 1.1 (0.8-1.3) mg/dL Est Cr Clr Drug Dosing 67.60 mL/min Estimated GFR (MDRD) > 60.0 ml/min Glucose 183 H (74-106) mg/dL POC Glucose 167 H (70-99) mg/dL Calcium 9.1 (8.5-10.1) mg/dL Phosphorus (2.6-4.7) mg/dL Magnesium (1.8-2.4) mg/dL Total Bilirubin 0.6 (0.2-1.0) mg/dL AST 35 (15-37) IU/L ALT 54 (14-63) IU/L Alkaline Phosphatase 113 (46-116) U/L Troponin I < 0.050 (0.000-0.056) ng/mL Total Protein 7.9 (6.4-8.2) g/dL Albumin 3.3 L (3.4-5.0) g/dL Globulin 4.6 H (2.6-4.0) g/dL Albumin/Globulin Ratio 0.7 L (0.9-1.6) Triglycerides (0-200) mg/dL Cholesterol (50-200) mg/dL LDL Cholesterol, Calc (60-180) mg/dL VLDL Cholesterol (5-55) mg/dL HDL Cholesterol (40-60) mg/dL Cholesterol/HDL Ratio (3.3-6.0) Amylase (25-115) U/L Lipase 103 (73-393) U/L Urine Color Urine Appearance Urine pH (5.0-8.0) Ur Specific Watson (1.001-1.035) Urine Protein (NEGATIVE) mg/dL Urine Glucose (UA) (NEGATIVE) mg/dL Urine Ketones (NEGATIVE) mg/dL Urine Occult Blood (NEGATIVE) Urine Nitrite (NEGATIVE) Urine Bilirubin (NEGATIVE) Urine Urobilinogen (<2.0) EU/dL Ur Leukocyte Esterase (NEGATIVE) Influenza Type A RNA (NEGATIVE) Influenza Type B RNA (NEGATIVE) SARS-CoV-2 RNA ([facility]) (NEGATIVE) 01/01/21 01/01/21 01/01/21 Range/Units 11:48 11:48 13:30 WBC (4.0-11.0) K/uL RBC (4.50-5.90) M/uL Hgb (13.0-17.0) g/dL Hct (38.0-50.0) % MCV (80.0-98.0) fL MCH (27.0-32.0) pg MCHC (31.0-37.0) g/dL RDW Std Deviation (28.0-62.0) fl RDW Coeff of Len (11.0-15.0) % Plt Count (150-400) K/uL MPV (7.40-12.00) fL Neut % (Auto) (48.0-80.0) % Lymph % (Auto) (16.0-40.0) % Vernon % (Auto) (0.0-15.0) % Eos % (Auto) (0.0-7.0) % Baso % (Auto) (0.0-1.5) % Neut # (Auto) (1.4-5.7) K/uL Lymph # (Auto) (0.6-2.4) K/uL Vernon # (Auto) (0.0-0.8) K/uL Eos # (Auto) (0.0-0.7) K/uL Baso # (Auto) (0.0-0.1) K/uL Nucleated RBC % /100WBC Nucleated RBCs # K/uL Sodium (136-148) mmol/L Potassium (3.5-5.1) mmol/L Chloride (98-107) mmol/L Carbon Dioxide (21.0-32.0) mmol/L BUN (7.0-18.0) mg/dL Creatinine (0.8-1.3) mg/dL Est Cr Clr Drug Dosing mL/min Estimated GFR (MDRD) ml/min Glucose (74-106) mg/dL POC Glucose (70-99) mg/dL Calcium (8.5-10.1) mg/dL Phosphorus (2.6-4.7) mg/dL Magnesium (1.8-2.4) mg/dL Total Bilirubin (0.2-1.0) mg/dL AST (15-37) IU/L ALT (14-63) IU/L Alkaline Phosphatase (46-116) U/L Troponin I (0.000-0.056) ng/mL Total Protein (6.4-8.2) g/dL Albumin (3.4-5.0) g/dL Globulin (2.6-4.0) g/dL Albumin/Globulin Ratio (0.9-1.6) Triglycerides 149 (0-200) mg/dL Cholesterol 209 H (50-200) mg/dL LDL Cholesterol, Calc 141 (60-180) mg/dL VLDL Cholesterol 29 (5-55) mg/dL HDL Cholesterol 38 L (40-60) mg/dL Cholesterol/HDL Ratio 5.5 (3.3-6.0) Amylase 38 (25-115) U/L Lipase (73-393) U/L Urine Color YELLOW Urine Appearance CLEAR Urine pH 8.5 H (5.0-8.0) Ur Specific Watson 1.010 (1.001-1.035) Urine Protein NEGATIVE (NEGATIVE) mg/dL Urine Glucose (UA) NEGATIVE (NEGATIVE) mg/dL Urine Ketones NEGATIVE (NEGATIVE) mg/dL Urine Occult Blood NEGATIVE (NEGATIVE) Urine Nitrite NEGATIVE (NEGATIVE) Urine Bilirubin NEGATIVE (NEGATIVE) Urine Urobilinogen 0.2 (<2.0) EU/dL Ur Leukocyte Esterase NEGATIVE (NEGATIVE) Influenza Type A RNA (NEGATIVE) Influenza Type B RNA (NEGATIVE) SARS-CoV-2 RNA ([facility]) (NEGATIVE) 01/01/21 01/01/21 01/02/21 Range/Units 14:26 17:12 00:14 WBC (4.0-11.0) K/uL RBC (4.50-5.90) M/uL Hgb (13.0-17.0) g/dL Hct (38.0-50.0) % MCV (80.0-98.0) fL MCH (27.0-32.0) pg MCHC (31.0-37.0) g/dL RDW Std Deviation (28.0-62.0) fl RDW Coeff of Len (11.0-15.0) % Plt Count (150-400) K/uL MPV (7.40-12.00) fL Neut % (Auto) (48.0-80.0) % Lymph % (Auto) (16.0-40.0) % Vernon % (Auto) (0.0-15.0) % Eos % (Auto) (0.0-7.0) % Baso % (Auto) (0.0-1.5) % Neut # (Auto) (1.4-5.7) K/uL Lymph # (Auto) (0.6-2.4) K/uL Vernon # (Auto) (0.0-0.8) K/uL Eos # (Auto) (0.0-0.7) K/uL Baso # (Auto) (0.0-0.1) K/uL Nucleated RBC % /100WBC Nucleated RBCs # K/uL Sodium (136-148) mmol/L Potassium (3.5-5.1) mmol/L Chloride (98-107) mmol/L Carbon Dioxide (21.0-32.0) mmol/L BUN (7.0-18.0) mg/dL Creatinine (0.8-1.3) mg/dL Est Cr Clr Drug Dosing mL/min Estimated GFR (MDRD) ml/min Glucose (74-106) mg/dL POC Glucose 146 H 97 (70-99) mg/dL Calcium (8.5-10.1) mg/dL Phosphorus (2.6-4.7) mg/dL Magnesium (1.8-2.4) mg/dL Total Bilirubin (0.2-1.0) mg/dL AST (15-37) IU/L ALT (14-63) IU/L Alkaline Phosphatase (46-116) U/L Troponin I (0.000-0.056) ng/mL Total Protein (6.4-8.2) g/dL Albumin (3.4-5.0) g/dL Globulin (2.6-4.0) g/dL Albumin/Globulin Ratio (0.9-1.6) Triglycerides (0-200) mg/dL Cholesterol (50-200) mg/dL LDL Cholesterol, Calc (60-180) mg/dL VLDL Cholesterol (5-55) mg/dL HDL Cholesterol (40-60) mg/dL Cholesterol/HDL Ratio (3.3-6.0) Amylase (25-115) U/L Lipase (73-393) U/L Urine Color Urine Appearance Urine pH (5.0-8.0) Ur Specific Watson (1.001-1.035) Urine Protein (NEGATIVE) mg/dL Urine Glucose (UA) (NEGATIVE) mg/dL Urine Ketones (NEGATIVE) mg/dL Urine Occult Blood (NEGATIVE) Urine Nitrite (NEGATIVE) Urine Bilirubin (NEGATIVE) Urine Urobilinogen (<2.0) EU/dL Ur Leukocyte Esterase (NEGATIVE) Influenza Type A RNA NEGATIVE (NEGATIVE) Influenza Type B RNA NEGATIVE (NEGATIVE) SARS-CoV-2 RNA ([facility]) NEGATIVE (NEGATIVE) 01/02/21 01/02/21 01/02/21 Range/Units 05:18 05:18 06:07 WBC 5.68 (4.0-11.0) K/uL RBC 4.28 L (4.50-5.90) M/uL Hgb 13.1 (13.0-17.0) g/dL Hct 38.4 (38.0-50.0) % MCV 89.7 (80.0-98.0) fL MCH 30.6 (27.0-32.0) pg MCHC 34.1 (31.0-37.0) g/dL RDW Std Deviation 40.7 (28.0-62.0) fl RDW Coeff of Len 13 (11.0-15.0) % Plt Count 301 (150-400) K/uL MPV 10.10 (7.40-12.00) fL Neut % (Auto) 48.4 (48.0-80.0) % Lymph % (Auto) 38.2 (16.0-40.0) % Vernon % (Auto) 8.1 (0.0-15.0) % Eos % (Auto) 4.9 (0.0-7.0) % Baso % (Auto) 0.4 (0.0-1.5) % Neut # (Auto) 2.8 (1.4-5.7) K/uL Lymph # (Auto) 2.2 (0.6-2.4) K/uL Vernon # (Auto) 0.5 (0.0-0.8) K/uL Eos # (Auto) 0.3 (0.0-0.7) K/uL Baso # (Auto) 0.0 (0.0-0.1) K/uL Nucleated RBC % 0.0 /100WBC Nucleated RBCs # 0 K/uL Sodium 137 (136-148) mmol/L Potassium 3.7 (3.5-5.1) mmol/L Chloride 103 (98-107) mmol/L Carbon Dioxide 28.5 (21.0-32.0) mmol/L BUN 8 (7.0-18.0) mg/dL Creatinine 1.0 (0.8-1.3) mg/dL Est Cr Clr Drug Dosing 74.36 mL/min Estimated GFR (MDRD) > 60.0 ml/min Glucose 233 H (74-106) mg/dL POC Glucose 189 H (70-99) mg/dL Calcium 7.9 L (8.5-10.1) mg/dL Phosphorus 2.5 L (2.6-4.7) mg/dL Magnesium 1.8 (1.8-2.4) mg/dL Total Bilirubin 0.5 (0.2-1.0) mg/dL AST 30 (15-37) IU/L ALT 49 (14-63) IU/L Alkaline Phosphatase 87 (46-116) U/L Troponin I (0.000-0.056) ng/mL Total Protein 6.6 (6.4-8.2) g/dL Albumin 3.0 L (3.4-5.0) g/dL Globulin 3.6 (2.6-4.0) g/dL Albumin/Globulin Ratio 0.8 L (0.9-1.6) Triglycerides (0-200) mg/dL Cholesterol (50-200) mg/dL LDL Cholesterol, Calc (60-180) mg/dL VLDL Cholesterol (5-55) mg/dL HDL Cholesterol (40-60) mg/dL Cholesterol/HDL Ratio (3.3-6.0) Amylase (25-115) U/L Lipase 82 (73-393) U/L Urine Color Urine Appearance Urine pH (5.0-8.0) Ur Specific Watson (1.001-1.035) Urine Protein (NEGATIVE) mg/dL Urine Glucose (UA) (NEGATIVE) mg/dL Urine Ketones (NEGATIVE) mg/dL Urine Occult Blood (NEGATIVE) Urine Nitrite (NEGATIVE) Urine Bilirubin (NEGATIVE) Urine Urobilinogen (<2.0) EU/dL Ur Leukocyte Esterase (NEGATIVE) Influenza Type A RNA (NEGATIVE) Influenza Type B RNA (NEGATIVE) SARS-CoV-2 RNA ([facility]) (NEGATIVE) Med Orders - Current: Current Medications Acetaminophen (Acetaminophen 325 Mg Tab) 650 mg PO Q4H PRN PRN Reason: Pain Last Admin: 01/02/21 05:55 Dose: 650 mg Documented by: Atorvastatin Calcium (Atorvastatin 40 Mg Tab) 40 mg PO BEDTIME [facility] Last Admin: 01/01/21 20:04 Dose: 40 mg Documented by: Dextrose/Water (50% Dextrose In Water 50 Ml Syringe) 50 ml IV ASDIRECTED PRN PRN Reason: Hypoglycemia Glucagon (Glucagon,Human Recombinant 1 Mg Vial) 1 mg IM ASDIRECTED PRN PRN Reason: Hypoglycemia Heparin Sodium (Porcine) (Heparin Sodium 5,000 Units/Ml Vial) 5,000 units SUBCUT Q8H [facility] Last Admin: 01/02/21 00:08 Dose: 5,000 units Documented by: Hydromorphone HCl (Hydromorphone 1 Mg/Ml Syringe) 1 mg IVPUSH Q3H PRN PRN Reason: Pain (severe 7-10) Lactated Ringer's (Ringers, Lactated) 1,000 mls @ 200 mls/hr IV Q5H [facility] Last Admin: 01/02/21 03:25 Dose: 200 mls/hr Documented by: Pantoprazole Sodium 40 mg/ (Sodium Chloride) 10 mls @ 200 mls/hr IV Q24H [facility] Last Admin: 01/01/21 17:16 Dose: 200 mls/hr Documented by: Insulin Aspart (Insulin Aspart 100 Units/Ml 3 Ml Pen) 0 unit SUBCUT Q6H [facility]; Protocol Last Admin: 01/02/21 06:11 Dose: 1 unit Documented by: Ondansetron HCl (Ondansetron 4 Mg/2 Ml Sdv) 4 mg IVPUSH Q4H PRN PRN Reason: Nausea Sodium Chloride (Sodium Chloride 0.9% 2.5 Ml Syringe) 2.5 ml FLUSH ASDIRECTED PRN PRN Reason: Keep Vein Open Discontinued Medications Hydromorphone HCl (Hydromorphone 2 Mg/Ml Syringe) 0.5 mg IVPUSH ONETIME ONE Stop: 01/01/21 14:32 Last Admin: 01/01/21 14:40 Dose: 0.5 mg Documented by: Hydromorphone HCl (Hydromorphone 2 Mg/Ml Syringe) 1 mg IVPUSH Q3H PRN PRN Reason: Pain (severe 7-10) Last Admin: 01/02/21 00:18 Dose: 1 mg Documented by: Sodium Chloride (Normal Saline) 1,000 mls @ 999 mls/hr IV BOLUS ONE Stop: 01/01/21 12:56 Last Admin: 01/01/21 12:08 Dose: 999 mls/hr Documented by: Sodium Chloride (Normal Saline) 1,000 mls @ 999 mls/hr IV STAT ONE Stop: 01/01/21 15:31 Last Admin: 01/01/21 14:40 Dose: 999 mls/hr Documented by: Lactated Ringer's (Ringers, Lactated) 1,000 mls @ 999 mls/hr IV ONETIME ONE Stop: 01/01/21 17:30 Last Admin: 01/01/21 17:14 Dose: 999 mls/hr Documented by: Iopamidol (Iopamidol 755 Mg/Ml 500 Ml Multipack Bottle) 100 ml IVPUSH ONETIME STA Stop: 01/01/21 17:27 Last Admin: 01/01/21 17:27 Dose: 100 ml Documented by: Ketorolac Tromethamine (Ketorolac 30 Mg/Ml Sdv) 30 mg IVPUSH ONETIME ONE Stop: 01/01/21 11:57 Last Admin: 01/01/21 12:08 Dose: 30 mg Documented by: Morphine Sulfate (Morphine 4 Mg/Ml Syringe) 4 mg IVPUSH ONETIME ONE Stop: 01/01/21 11:58 Last Admin: 01/01/21 12:08 Dose: 4 mg Documented by: Ondansetron HCl (Ondansetron 4 Mg/2 Ml Sdv) 4 mg IVPUSH ONETIME ONE Stop: 01/01/21 11:57 Last Admin: 01/01/21 12:08 Dose: 4 mg Documented by: - Exam General: Alert, Oriented, Cooperative, No Acute Distress Neck: Supple Lungs: Clear to Auscultation, Normal Respiratory Effort Cardiovascular: Regular Rate, Regular Rhythm GI/Abdominal Exam: Normal Bowel Sounds, Soft, Non-Tender Extremities: Normal Inspection, Normal Range of Motion, Non-Tender, No Pedal Edema, Normal Capillary Refill Wound/Incisions: Healing Well Neurological: No New Focal Deficit Psy/Mental Status: Alert, Normal Affect, Normal Mood - Patient Data Lab Results Last 24 hrs: Laboratory Results - last 24 hr 01/01/21 01/01/21 01/01/21 Range/Units 11:47 11:48 11:48 WBC 7.62 (4.0-11.0) K/uL RBC 4.86 (4.50-5.90) M/uL Hgb 15.1 (13.0-17.0) g/dL Hct 42.7 (38.0-50.0) % MCV 87.9 (80.0-98.0) fL MCH 31.1 (27.0-32.0) pg MCHC 35.4 (31.0-37.0) g/dL RDW Std Deviation 39.7 (28.0-62.0) fl RDW Coeff of Len 12 (11.0-15.0) % Plt Count 372 (150-400) K/uL MPV 9.90 (7.40-12.00) fL Neut % (Auto) 58.8 (48.0-80.0) % Lymph % (Auto) 26.6 (16.0-40.0) % Vernon % (Auto) 11.2 (0.0-15.0) % Eos % (Auto) 3.1 (0.0-7.0) % Baso % (Auto) 0.3 (0.0-1.5) % Neut # (Auto) 4.5 (1.4-5.7) K/uL Lymph # (Auto) 2.0 (0.6-2.4) K/uL Vernon # (Auto) 0.9 H (0.0-0.8) K/uL Eos # (Auto) 0.2 (0.0-0.7) K/uL Baso # (Auto) 0.0 (0.0-0.1) K/uL Nucleated RBC % 0.0 /100WBC Nucleated RBCs # 0 K/uL Sodium 136 (136-148) mmol/L Potassium 3.7 (3.5-5.1) mmol/L Chloride 99 (98-107) mmol/L Carbon Dioxide 30.4 (21.0-32.0) mmol/L BUN 14 (7.0-18.0) mg/dL Creatinine 1.1 (0.8-1.3) mg/dL Est Cr Clr Drug Dosing 67.60 mL/min Estimated GFR (MDRD) > 60.0 ml/min Glucose 183 H (74-106) mg/dL POC Glucose 167 H (70-99) mg/dL Calcium 9.1 (8.5-10.1) mg/dL Phosphorus (2.6-4.7) mg/dL Magnesium (1.8-2.4) mg/dL Total Bilirubin 0.6 (0.2-1.0) mg/dL AST 35 (15-37) IU/L ALT 54 (14-63) IU/L Alkaline Phosphatase 113 (46-116) U/L Troponin I < 0.050 (0.000-0.056) ng/mL Total Protein 7.9 (6.4-8.2) g/dL Albumin 3.3 L (3.4-5.0) g/dL Globulin 4.6 H (2.6-4.0) g/dL Albumin/Globulin Ratio 0.7 L (0.9-1.6) Triglycerides (0-200) mg/dL Cholesterol (50-200) mg/dL LDL Cholesterol, Calc (60-180) mg/dL VLDL Cholesterol (5-55) mg/dL HDL Cholesterol (40-60) mg/dL Cholesterol/HDL Ratio (3.3-6.0) Amylase (25-115) U/L Lipase 103 (73-393) U/L Urine Color Urine Appearance Urine pH (5.0-8.0) Ur Specific Watson (1.001-1.035) Urine Protein (NEGATIVE) mg/dL Urine Glucose (UA) (NEGATIVE) mg/dL Urine Ketones (NEGATIVE) mg/dL Urine Occult Blood (NEGATIVE) Urine Nitrite (NEGATIVE) Urine Bilirubin (NEGATIVE) Urine Urobilinogen (<2.0) EU/dL Ur Leukocyte Esterase (NEGATIVE) Influenza Type A RNA (NEGATIVE) Influenza Type B RNA (NEGATIVE) SARS-CoV-2 RNA ([facility]) (NEGATIVE) 01/01/21 01/01/21 01/01/21 Range/Units 11:48 11:48 13:30 WBC (4.0-11.0) K/uL RBC (4.50-5.90) M/uL Hgb (13.0-17.0) g/dL Hct (38.0-50.0) % MCV (80.0-98.0) fL MCH (27.0-32.0) pg MCHC (31.0-37.0) g/dL RDW Std Deviation (28.0-62.0) fl RDW Coeff of Len (11.0-15.0) % Plt Count (150-400) K/uL MPV (7.40-12.00) fL Neut % (Auto) (48.0-80.0) % Lymph % (Auto) (16.0-40.0) % Vernon % (Auto) (0.0-15.0) % Eos % (Auto) (0.0-7.0) % Baso % (Auto) (0.0-1.5) % Neut # (Auto) (1.4-5.7) K/uL Lymph # (Auto) (0.6-2.4) K/uL Vernon # (Auto) (0.0-0.8) K/uL Eos # (Auto) (0.0-0.7) K/uL Baso # (Auto) (0.0-0.1) K/uL Nucleated RBC % /100WBC Nucleated RBCs # K/uL Sodium (136-148) mmol/L Potassium (3.5-5.1) mmol/L Chloride (98-107) mmol/L Carbon Dioxide (21.0-32.0) mmol/L BUN (7.0-18.0) mg/dL Creatinine (0.8-1.3) mg/dL Est Cr Clr Drug Dosing mL/min Estimated GFR (MDRD) ml/min Glucose (74-106) mg/dL POC Glucose (70-99) mg/dL Calcium (8.5-10.1) mg/dL Phosphorus (2.6-4.7) mg/dL Magnesium (1.8-2.4) mg/dL Total Bilirubin (0.2-1.0) mg/dL AST (15-37) IU/L ALT (14-63) IU/L Alkaline Phosphatase (46-116) U/L Troponin I (0.000-0.056) ng/mL Total Protein (6.4-8.2) g/dL Albumin (3.4-5.0) g/dL Globulin (2.6-4.0) g/dL Albumin/Globulin Ratio (0.9-1.6) Triglycerides 149 (0-200) mg/dL Cholesterol 209 H (50-200) mg/dL LDL Cholesterol, Calc 141 (60-180) mg/dL VLDL Cholesterol 29 (5-55) mg/dL HDL Cholesterol 38 L (40-60) mg/dL Cholesterol/HDL Ratio 5.5 (3.3-6.0) Amylase 38 (25-115) U/L Lipase (73-393) U/L Urine Color YELLOW Urine Appearance CLEAR Urine pH 8.5 H (5.0-8.0) Ur Specific Watson 1.010 (1.001-1.035) Urine Protein NEGATIVE (NEGATIVE) mg/dL Urine Glucose (UA) NEGATIVE (NEGATIVE) mg/dL Urine Ketones NEGATIVE (NEGATIVE) mg/dL Urine Occult Blood NEGATIVE (NEGATIVE) Urine Nitrite NEGATIVE (NEGATIVE) Urine Bilirubin NEGATIVE (NEGATIVE) Urine Urobilinogen 0.2 (<2.0) EU/dL Ur Leukocyte Esterase NEGATIVE (NEGATIVE) Influenza Type A RNA (NEGATIVE) Influenza Type B RNA (NEGATIVE) SARS-CoV-2 RNA ([facility]) (NEGATIVE) 01/01/21 01/01/21 01/02/21 Range/Units 14:26 17:12 00:14 WBC (4.0-11.0) K/uL RBC (4.50-5.90) M/uL Hgb (13.0-17.0) g/dL Hct (38.0-50.0) % MCV (80.0-98.0) fL MCH (27.0-32.0) pg MCHC (31.0-37.0) g/dL RDW Std Deviation (28.0-62.0) fl RDW Coeff of Len (11.0-15.0) % Plt Count (150-400) K/uL MPV (7.40-12.00) fL Neut % (Auto) (48.0-80.0) % Lymph % (Auto) (16.0-40.0) % Vernon % (Auto) (0.0-15.0) % Eos % (Auto) (0.0-7.0) % Baso % (Auto) (0.0-1.5) % Neut # (Auto) (1.4-5.7) K/uL Lymph # (Auto) (0.6-2.4) K/uL Vernon # (Auto) (0.0-0.8) K/uL Eos # (Auto) (0.0-0.7) K/uL Baso # (Auto) (0.0-0.1) K/uL Nucleated RBC % /100WBC Nucleated RBCs # K/uL Sodium (136-148) mmol/L Potassium (3.5-5.1) mmol/L Chloride (98-107) mmol/L Carbon Dioxide (21.0-32.0) mmol/L BUN (7.0-18.0) mg/dL Creatinine (0.8-1.3) mg/dL Est Cr Clr Drug Dosing mL/min Estimated GFR (MDRD) ml/min Glucose (74-106) mg/dL POC Glucose 146 H 97 (70-99) mg/dL Calcium (8.5-10.1) mg/dL Phosphorus (2.6-4.7) mg/dL Magnesium (1.8-2.4) mg/dL Total Bilirubin (0.2-1.0) mg/dL AST (15-37) IU/L ALT (14-63) IU/L Alkaline Phosphatase (46-116) U/L Troponin I (0.000-0.056) ng/mL Total Protein (6.4-8.2) g/dL Albumin (3.4-5.0) g/dL Globulin (2.6-4.0) g/dL Albumin/Globulin Ratio (0.9-1.6) Triglycerides (0-200) mg/dL Cholesterol (50-200) mg/dL LDL Cholesterol, Calc (60-180) mg/dL VLDL Cholesterol (5-55) mg/dL HDL Cholesterol (40-60) mg/dL Cholesterol/HDL Ratio (3.3-6.0) Amylase (25-115) U/L Lipase (73-393) U/L Urine Color Urine Appearance Urine pH (5.0-8.0) Ur Specific Watson (1.001-1.035) Urine Protein (NEGATIVE) mg/dL Urine Glucose (UA) (NEGATIVE) mg/dL Urine Ketones (NEGATIVE) mg/dL Urine Occult Blood (NEGATIVE) Urine Nitrite (NEGATIVE) Urine Bilirubin (NEGATIVE) Urine Urobilinogen (<2.0) EU/dL Ur Leukocyte Esterase (NEGATIVE) Influenza Type A RNA NEGATIVE (NEGATIVE) Influenza Type B RNA NEGATIVE (NEGATIVE) SARS-CoV-2 RNA ([place]) NEGATIVE (NEGATIVE) 01/02/21 01/02/21 01/02/21 Range/Units 05:18 05:18 06:07 WBC 5.68 (4.0-11.0) K/uL RBC 4.28 L (4.50-5.90) M/uL Hgb 13.1 (13.0-17.0) g/dL Hct 38.4 (38.0-50.0) % MCV 89.7 (80.0-98.0) fL MCH 30.6 (27.0-32.0) pg MCHC 34.1 (31.0-37.0) g/dL RDW Std Deviation 40.7 (28.0-62.0) fl RDW Coeff of Len 13 (11.0-15.0) % Plt Count 301 (150-400) K/uL MPV 10.10 (7.40-12.00) fL Neut % (Auto) 48.4 (48.0-80.0) % Lymph % (Auto) 38.2 (16.0-40.0) % Vernon % (Auto) 8.1 (0.0-15.0) % Eos % (Auto) 4.9 (0.0-7.0) % Baso % (Auto) 0.4 (0.0-1.5) % Neut # (Auto) 2.8 (1.4-5.7) K/uL Lymph # (Auto) 2.2 (0.6-2.4) K/uL Vernon # (Auto) 0.5 (0.0-0.8) K/uL Eos # (Auto) 0.3 (0.0-0.7) K/uL Baso # (Auto) 0.0 (0.0-0.1) K/uL Nucleated RBC % 0.0 /100WBC Nucleated RBCs # 0 K/uL Sodium 137 (136-148) mmol/L Potassium 3.7 (3.5-5.1) mmol/L Chloride 103 (98-107) mmol/L Carbon Dioxide 28.5 (21.0-32.0) mmol/L BUN 8 (7.0-18.0) mg/dL Creatinine 1.0 (0.8-1.3) mg/dL Est Cr Clr Drug Dosing 74.36 mL/min Estimated GFR (MDRD) > 60.0 ml/min Glucose 233 H (74-106) mg/dL POC Glucose 189 H (70-99) mg/dL Calcium 7.9 L (8.5-10.1) mg/dL Phosphorus 2.5 L (2.6-4.7) mg/dL Magnesium 1.8 (1.8-2.4) mg/dL Total Bilirubin 0.5 (0.2-1.0) mg/dL AST 30 (15-37) IU/L ALT 49 (14-63) IU/L Alkaline Phosphatase 87 (46-116) U/L Troponin I (0.000-0.056) ng/mL Total Protein 6.6 (6.4-8.2) g/dL Albumin 3.0 L (3.4-5.0) g/dL Globulin 3.6 (2.6-4.0) g/dL Albumin/Globulin Ratio 0.8 L (0.9-1.6) Triglycerides (0-200) mg/dL Cholesterol (50-200) mg/dL LDL Cholesterol, Calc (60-180) mg/dL VLDL Cholesterol (5-55) mg/dL HDL Cholesterol (40-60) mg/dL Cholesterol/HDL Ratio (3.3-6.0) Amylase (25-115) U/L Lipase 82 (73-393) U/L Urine Color Urine Appearance Urine pH (5.0-8.0) Ur Specific Watson (1.001-1.035) Urine Protein (NEGATIVE) mg/dL Urine Glucose (UA) (NEGATIVE) mg/dL Urine Ketones (NEGATIVE) mg/dL Urine Occult Blood (NEGATIVE) Urine Nitrite (NEGATIVE) Urine Bilirubin (NEGATIVE) Urine Urobilinogen (<2.0) EU/dL Ur Leukocyte Esterase (NEGATIVE) Influenza Type A RNA (NEGATIVE) Influenza Type B RNA (NEGATIVE) SARS-CoV-2 RNA ([place]) (NEGATIVE) Result Diagrams: 01/02/21 05:18 01/02/21 05:18 Sepsis Event Note - Evaluation Sepsis Screening Result: No Definite Risk - Focused Exam Vital Signs: Vital Signs Temp Pulse Resp BP Pulse Ox 01/02/21 00:01 97.4 F 50 L 16 141/78 H 95 01/01/21 20:05 97.7 F 46 L 16 124/59 L 95 - Problem List & Annotations (1) Acute pancreatitis SNOMED Code(s): 017594706 Code(s): K85.90 - ACUTE PANCREATITIS WITHOUT NECROSIS OR INFECTION, UNSP Status: Acute Current Visit: Yes Qualifiers: Pancreatitis type: unspecified pancreatitis type Acute pancreatitis complication: unspecified Qualified Code(s): K85.90 - Acute pancreatitis without necrosis or infection, unspecified (2) Sinus bradycardia SNOMED Code(s): 17002925 Code(s): R00.1 - BRADYCARDIA, UNSPECIFIED Status: Acute Current Visit: Yes (3) Obesity SNOMED Code(s): 812128529, 429282198 Code(s): E66.9 - OBESITY, UNSPECIFIED Status: Chronic Current Visit: Yes (4) DM type 2 (diabetes mellitus, type 2) SNOMED Code(s): 42175379 Code(s): E11.9 - TYPE 2 DIABETES MELLITUS WITHOUT COMPLICATIONS Status: Chronic Current Visit: Yes (5) Gout SNOMED Code(s): 74818331 Code(s): M10.9 - GOUT, UNSPECIFIED Status: Chronic Current Visit: Yes (6) Hypertension SNOMED Code(s): 84079997 Code(s): I10 - ESSENTIAL (PRIMARY) HYPERTENSION Status: Chronic Current Visit: Yes - Problem List Review Problem List Initiated/Reviewed/Updated: Yes - My Orders Last 24 Hours: My Active Orders 01/01/21 16:05 Oxygen Therapy [RC] PRN Telemetry Monitoring [Cardiac Monitoring] [RC] Q8H Up With Assistance [RC] ASDIRECTED VTE/DVT Education [RC] PER UNIT ROUTINE Vital Signs [RC] Q4H Ondansetron [Zofran] 4 mg IVPUSH Q4H PRN Sodium Chloride 0.9% [Saline Flush] 2.5 ml FLUSH ASDIRECTED PRN Saline Lock Insert [OM.PC] Routine Resuscitation Status Routine 01/01/21 16:06 Intake and Output [RC] Q12H 01/01/21 16:09 Dextrose 50% in Water 50 ml IV ASDIRECTED PRN Glucagon,Human Recombinant [GlucaGen] 1 mg IM ASDIRECTED PRN 01/01/21 16:30 Heparin Sodium 5,000 units SUBCUT Q8H 01/01/21 16:45 Pantoprazole [ProTONIX IV] 40 mg Sodium Chloride 0.9% [Normal Saline] 10 ml IV Q24H 01/01/21 17:30 Lactated Ringers [Ringers, Lactated] 1,000 ml IV Q5H 01/01/21 18:00 Blood Glucose Check, Bedside [RC] Q6HR Insulin Aspart [NovoLOG] See Protocol SUBCUT Q6H 01/02/21 07:30 HYDROmorphone [Dilaudid] 1 mg IVPUSH Q3H PRN - Plan Plan:: This 60-year-old male admitted with acute pancreatitis 1. Acute pancreatitis -Improving -Continue LR 125 mL/h -Increase diet to clear liquid -Zofran for nausea as needed -Monitor electrolytes -Protonix daily -Right upper quadrant ultrasound negative shows hepatomegaly no cholelithiasis or bile duct dilation -This pancreatitis could likely be idiopathic, viral and or medication induced due to recent start of Metformin. -Give Toradol this morning for headache. 2. Bradycardia -Asymptomatic -Monitor on telemetry -Hold atenolol 3. DM type II -Newly diagnosed and started on Metformin and insulin -Stop Metformin -Continue insulin -A1c 11.1 December 19, 2020 during his admission in [place] -Blood sugar checks with meals 4. Hypertension -Blood pressure slightly elevated now likely secondary to pain -We will hold atenolol consider starting SPIKE if needed. VTE prophylaxis: Heparin GI prophylaxis: Protonix CODE STATUS: Full code Dispo: Possible DC in am
[2021-01-02] MEDS ORDERED: Ketorolac 30 MG/ML SDV IVPUSH ONE (09:10)
[2021-01-02] MEDS: Pantoprazole 40 MG in Sodium Chloride 0.9% 10 ML IV SCH (16:47)
[2021-01-02] MEDS ORDERED: LORazepam 2 MG/ML SDV IVPUSH PRN (19:47)
[2021-01-02] MEDS: atorvaSTATin 40 MG Tab PO SCH (20:01)
[2021-01-02] MEDS ORDERED: Phosphorus #1 250 MG Tab PO ONE (22:22)
[2021-01-02] MEDS ORDERED: Magnesium Oxide 400 MG Tab PO ONE (22:22)
[2021-01-02] MEDS ORDERED: Potassium Chloride 10% 20 MEQ/15 ML Soln 30 ML UD Cup PO ONE (22:22)
[2021-01-03 07:21] LABS: BLOOD UREA NITROGEN,BUN 5 mg/dL (7.0-18.0); CARBON DIOXIDE,CO2 27.6 mmol/L (21.0-32.0); CHLORIDE,CL 105 mmol/L (98-107); GLUCOSE RANDOM 113 mg/dL (74-106); SODIUM,NA 138 mmol/L (136-148)
[2021-01-03] MEDS: Lactated Ringers 1,000 ML IV SCH (07:37)
[2021-01-03] MEDS: Heparin Sodium 5,000 Units/ML Vial SUBCUT SCH (08:53)
--- NOTE | 2021-01-03 09:54 | PCM.DCSUM1 ---
Discharge Summary - Hospital Course Brief History: This 60-year-old male with past medical history of HTN, gout and diabetes type 2 presented to the ED with complaints of upper abdominal cramping has been constant for about 8 days. He has been unable to eat or drink for the past 2 days due to pain and nausea. He reports the pain is coming in waves of cramping and that is more intense with laying flat and better when sitting up. He is a new diabetic and was placed on insulin and Metformin as his blood sugar was over 600 and was evaluated in [place]. He feels as though the Metformin is causing these concerns. He did report he had diarrhea initially and then the pain started. He reports he has had a decrease in appetite and feeling nauseated but has not vomited. He denies any fevers chills, chest pain, shortness of breath or cough. He denies any headache. Denies any diarrhea constipation dysuria or black or bloody stools. Reports that he does not drink and has not drink for 12 years. No tobacco use and no recreational drug use. In the ER lab work otherwise unremarkable blood sugar slightly elevated. Lipid panel obtained which shows triglycerides 149 total cholesterol 209 LDL 141 HDL 38, lipase 103 amylase 38. No transaminitis or hyperbilirubinemia noted. BUN and creatinine stable mild hyperglycemia noted at 183. UA negative Covid and influenza swab negative. CT of the abdomen pelvis was obtained which revealed thickening second portion of the duodenum peripancreatic fat adjacent to the pancreatic head with thickening of adjacent duodenum hepatomegaly with hepatic steatosis noted. Findings suggestive of acute pancreatitis. Chest x-ray obtained which reveals no acute cardiopulmonary process. Vital signs in the ER blood pressure is otherwise stable heart rate noted to be high 40s to 50s. Patient is on atenolol 50 mg daily. Patient denies any associated symptoms or dizziness with his heart rate. He was treated with 2 L normal saline boluses along with Toradol morphine Zofran and Dilaudid for pain control. He will be admitted for acute pancreatitis. - Discharge Data Discharge Date: 01/03/21 Discharge Disposition: Home, Self-Care 01 Condition: Good - Referral to Home Health Primary Care Physician: Luke Spann NP - Discharge Diagnosis/Problem(s) (1) Acute pancreatitis SNOMED Code(s): 288743068 ICD Code: K85.90 - ACUTE PANCREATITIS WITHOUT NECROSIS OR INFECTION, UNSP Status: Acute Qualifiers: Pancreatitis type: unspecified pancreatitis type Acute pancreatitis complication: unspecified Qualified Code(s): K85.90 - Acute pancreatitis wit hout necrosis or infection, unspecified (2) Sinus bradycardia SNOMED Code(s): 89871017 ICD Code: R00.1 - BRADYCARDIA, UNSPECIFIED Status: Acute (3) Obesity SNOMED Code(s): 427101933, 899370192 ICD Code: E66.9 - OBESITY, UNSPECIFIED Status: Chronic (4) DM type 2 (diabetes mellitus, type 2) SNOMED Code(s): 29764727 ICD Code: E11.9 - TYPE 2 DIABETES MELLITUS WITHOUT COMPLICATIONS Status: Chronic (5) Gout SNOMED Code(s): 86425858 ICD Code: M10.9 - GOUT, UNSPECIFIED Status: Chronic (6) Hypertension SNOMED Code(s): 47860233 ICD Code: I10 - ESSENTIAL (PRIMARY) HYPERTENSION Status: Chronic - Patient Summary/Data Consults: Consultations 01/03/21 09:53 Consult to Cake Maker [Consult to Diabetic Nurse Specialist] [CONS] Routine Hospital Course: Admission diagnoses Acute pancreatitis Discharge diagnoses Acute pancreatitis Wilman was admitted secondary to abdominal pain found to have acute pancreatitis on CT scan. He was treated with aggressive IV fluid resuscitation and bowel rest. Day 2 of admission abdominal pain resolved nearly completely clear liquid diet was started and he tolerated this well. This morning he is doing well on soft diet and very eager to go home. Blood sugars have been well controlled with sliding scale insulin. His blood sugars have been low enough that Levemir was on hold. He was taking Metformin at home and had just started this as acute pancreatitis was diagnosed. We will stop Metformin at this time secondary to consideration of medication induced pancreatitis from metformin. 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 As he increases his diet him his were counseled to slowly increase Levemir by 2 units at night to get back to 20. He will have sliding scale insulin with each meal he is counseled by diabetic education to help manage blood sugars better. He is okay not taking Metformin and would prefer not taking this and doing insulin instead. On admission he also noted to be bradycardic asymptomatic. He takes atenolol at home this was held as heart rate was down to 39 EKG showed no type of heart block and patient remained asymptomatic. Today heart rate is much improved in the 60s patient continues to do well. He will be discharged home today on insulin as stated above he is to continue losartan as well as he was treated with a atorvastatin for cholesterol. He is to hold and stop Metformin as well as atenolol. Him and his verbalized understanding. [facility] He will also have follow-up with Dr. Hayes as he is scheduled to have weight loss surgery in the coming months. He is to return to the ER clinic if concerns should arise sooner. - Discharge Plan Prescriptions/Med Rec: atorvaSTATin [Lipitor] 40 mg PO BEDTIME #30 tablet Insulin Aspart [NovoLOG] See Protocol SUBCUT TIDAC #1 pen Home Medications: Home Meds Losartan [Cozaar] 1 tab PO DAILY 01/01/21 [History] Insulin Aspart [NovoLOG] See Protocol SUBCUT TIDAC #1 pen 01/03/21 [Rx] Insulin Detemir [Levemir] 20 unit SQ BEDTIME #0 01/03/21 [Rx] atorvaSTATin [Lipitor] 40 mg PO BEDTIME #30 tablet 01/03/21 [Rx] Patient Handouts: Insulin Aspart injection, Acute Pancreatitis, [id number], Bradycardia, Adult, Hypoglycemia, Soft-Food Eating Plan, Type 2 Diabetes Mellitus, Self Care, Adult, [id number], Atorvastatin tablets Referrals: Luke Spann, [employer] [Primary Care Provider] - 01/15/21 8:30 am - Discharge Summary/Plan Comment DC Time >30 min.: No - Patient Data Vitals - Most Recent: Last Vital Signs Temp 97.2 F 01/03/21 07:15 Pulse 69 01/03/21 07:15 Resp 16 01/03/21 07:15 BP 125/64 01/03/21 07:15 Pulse Ox 94 L 01/03/21 07:15 Weight - Most Recent: 125.917 kg I&O - Last 24 hours: Intake & Output 01/02/21 01/03/21 01/03/21 22:59 06:59 14:59 Intake Total 1750 600 Output Total 650 600 Balance 1100 0 Lab Results - Last 24 hrs: Laboratory Results - last 24 hr 01/02/21 01/02/21 01/03/21 Range/Units 11:24 17:56 06:28 WBC 4.54 (4.0-11.0) K/uL RBC 4.28 L (4.50-5.90) M/uL Hgb 13.2 (13.0-17.0) g/dL Hct 38.1 (38.0-50.0) % MCV 89.0 (80.0-98.0) fL MCH 30.8 (27.0-32.0) pg MCHC 34.6 (31.0-37.0) g/dL RDW Std Deviation 40.5 (28.0-62.0) fl RDW Coeff of Len 13 (11.0-15.0) % Plt Count 280 (150-400) K/uL MPV 9.90 (7.40-12.00) fL Neut % (Auto) 48.9 (48.0-80.0) % Lymph % (Auto) 36.8 (16.0-40.0) % [place] % (Auto) 8.8 (0.0-15.0) % Eos % (Auto) 5.1 (0.0-7.0) % Baso % (Auto) 0.4 (0.0-1.5) % Neut # (Auto) 2.2 (1.4-5.7) K/uL Lymph # (Auto) 1.7 (0.6-2.4) K/uL [place] # (Auto) 0.4 (0.0-0.8) K/uL Eos # (Auto) 0.2 (0.0-0.7) K/uL Baso # (Auto) 0.0 (0.0-0.1) K/uL Nucleated RBC % 0.0 /100WBC Nucleated RBCs # 0 K/uL Sodium (136-148) mmol/L Potassium (3.5-5.1) mmol/L Chloride (98-107) mmol/L Carbon Dioxide (21.0-32.0) mmol/L BUN (7.0-18.0) mg/dL Creatinine (0.8-1.3) mg/dL Est Cr Clr Drug Dosing mL/min Estimated GFR (MDRD) ml/min Glucose (74-106) mg/dL POC Glucose 157 H 165 H (70-99) mg/dL Calcium (8.5-10.1) mg/dL Total Bilirubin (0.2-1.0) mg/dL AST (15-37) IU/L ALT (14-63) IU/L Alkaline Phosphatase (46-116) U/L Total Protein (6.4-8.2) g/dL Albumin (3.4-5.0) g/dL Globulin (2.6-4.0) g/dL Albumin/Globulin Ratio (0.9-1.6) 01/03/21 Range/Units 06:28 WBC (4.0-11.0) K/uL RBC (4.50-5.90) M/uL Hgb (13.0-17.0) g/dL Hct (38.0-50.0) % MCV (80.0-98.0) fL MCH (27.0-32.0) pg MCHC (31.0-37.0) g/dL RDW Std Deviation (28.0-62.0) fl RDW Coeff of Len (11.0-15.0) % Plt Count (150-400) K/uL MPV (7.40-12.00) fL Neut % (Auto) (48.0-80.0) % Lymph % (Auto) (16.0-40.0) % [place] % (Auto) (0.0-15.0) % Eos % (Auto) (0.0-7.0) % Baso % (Auto) (0.0-1.5) % Neut # (Auto) (1.4-5.7) K/uL Lymph # (Auto) (0.6-2.4) K/uL [place] # (Auto) (0.0-0.8) K/uL Eos # (Auto) (0.0-0.7) K/uL Baso # (Auto) (0.0-0.1) K/uL Nucleated RBC % /100WBC Nucleated RBCs # K/uL Sodium 138 (136-148) mmol/L Potassium 4.0 (3.5-5.1) mmol/L Chloride 105 (98-107) mmol/L Carbon Dioxide 27.6 (21.0-32.0) mmol/L BUN 5 L (7.0-18.0) mg/dL Creatinine 0.9 (0.8-1.3) mg/dL Est Cr Clr Drug Dosing 82.63 mL/min Estimated GFR (MDRD) > 60.0 ml/min Glucose 113 H (74-106) mg/dL POC Glucose (70-99) mg/dL Calcium 8.0 L (8.5-10.1) mg/dL Total Bilirubin 0.5 (0.2-1.0) mg/dL AST 34 (15-37) IU/L ALT 54 (14-63) IU/L Alkaline Phosphatase 91 (46-116) U/L Total Protein 6.6 (6.4-8.2) g/dL Albumin 2.9 L (3.4-5.0) g/dL Globulin 3.7 (2.6-4.0) g/dL Albumin/Globulin Ratio 0.8 L (0.9-1.6) Med Orders - Current: Current Medications Acetaminophen (Acetaminophen 325 Mg Tab) 650 mg PO Q4H PRN PRN Reason: Pain Last Admin: 01/02/21 05:55 Dose: 650 mg Documented by: Atorvastatin Calcium (Atorvastatin 40 Mg Tab) 40 mg PO BEDTIME [facility] Last Admin: 01/02/21 20:01 Dose: 40 mg Documented by: Dextrose/Water (50% Dextrose In Water 50 Ml Syringe) 50 ml IV ASDIRECTED PRN PRN Reason: Hypoglycemia Glucagon (Glucagon,Human Recombinant 1 Mg Vial) 1 mg IM ASDIRECTED PRN PRN Reason: Hypoglycemia Heparin Sodium (Porcine) (Heparin Sodium 5,000 Units/Ml Vial) 5,000 units SUBCUT Q8H [facility] Last Admin: 01/03/21 08:53 Dose: 5,000 units Documented by: Hydromorphone HCl (Hydromorphone 1 Mg/Ml Syringe) 1 mg IVPUSH Q3H PRN PRN Reason: Pain (severe 7-10) Pantoprazole Sodium 40 mg/ (Sodium Chloride) 10 mls @ 200 mls/hr IV Q24H [facility] Last Admin: 01/02/21 16:47 Dose: 200 mls/hr Documented by: Lactated Ringer's (Ringers, Lactated) 1,000 mls @ 125 mls/hr IV Q8H [facility] Last Admin: 01/03/21 07:37 Dose: 125 mls/hr Documented by: Insulin Aspart (Insulin Aspart 100 Units/Ml 3 Ml Pen) 0 unit SUBCUT TIDAC YOUSUF; Protocol Last Admin: 01/02/21 18:00 Dose: 1 units Documented by: Lorazepam (Lorazepam 2 Mg/Ml Sdv) 1 mg IVPUSH BEDTIME PRN PRN Reason: Insomnia Last Admin: 01/02/21 20:00 Dose: 1 mg Documented by: Ondansetron HCl (Ondansetron 4 Mg/2 Ml Sdv) 4 mg IVPUSH Q4H PRN PRN Reason: Nausea Sodium Chloride (Sodium Chloride 0.9% 2.5 Ml Syringe) 2.5 ml FLUSH ASDIRECTED PRN PRN Reason: Keep Vein Open Discontinued Medications Hydromorphone HCl (Hydromorphone 2 Mg/Ml Syringe) 0.5 mg IVPUSH ONETIME ONE Stop: 01/01/21 14:32 Last Admin: 01/01/21 14:40 Dose: 0.5 mg Documented by: Hydromorphone HCl (Hydromorphone 2 Mg/Ml Syringe) 1 mg IVPUSH Q3H PRN PRN Reason: Pain (severe 7-10) Last Admin: 01/02/21 00:18 Dose: 1 mg Documented by: Sodium Chloride (Normal Saline) 1,000 mls @ 999 mls/hr IV BOLUS ONE Stop: 01/01/21 12:56 Last Admin: 01/01/21 12:08 Dose: 999 mls/hr Documented by: Sodium Chloride (Normal Saline) 1,000 mls @ 999 mls/hr IV STAT ONE Stop: 01/01/21 15:31 Last Admin: 01/01/21 14:40 Dose: 999 mls/hr Documented by: Lactated Ringer's (Ringers, Lactated) 1,000 mls @ 999 mls/hr IV ONETIME ONE Stop: 01/01/21 17:30 Last Admin: 01/01/21 17:14 Dose: 999 mls/hr Documented by: Lactated Ringer's (Ringers, Lactated) 1,000 mls @ 200 mls/hr IV Q5H YOUSUF Last Infusion: 01/02/21 09:02 Dose: 125 mls/hr Documented by: Insulin Aspart (Insulin Aspart 100 Units/Ml 3 Ml Pen) 0 unit SUBCUT Q6H YOUSUF; Protocol Last Admin: 01/02/21 06:11 Dose: 1 unit Documented by: Iopamidol (Iopamidol 755 Mg/Ml 500 Ml Multipack Bottle) 100 ml IVPUSH ONETIME STA Stop: 01/01/21 17:27 Last Admin: 01/01/21 17:27 Dose: 100 ml Documented by: Ketorolac Tromethamine (Ketorolac 30 Mg/Ml Sdv) 30 mg IVPUSH ONETIME ONE Stop: 01/01/21 11:57 Last Admin: 01/01/21 12:08 Dose: 30 mg Documented by: Ketorolac Tromethamine (Ketorolac 30 Mg/Ml Sdv) 30 mg IVPUSH ONETIME ONE Stop: 01/02/21 09:11 Last Admin: 01/02/21 09:13 Dose: 30 mg Documented by: Magnesium Oxide (Magnesium Oxide 400 Mg Tab) 800 mg PO ONETIME ONE Stop: 01/02/21 22:23 Last Admin: 01/02/21 23:30 Dose: 800 mg Documented by: Morphine Sulfate (Morphine 4 Mg/Ml Syringe) 4 mg IVPUSH ONETIME ONE Stop: 01/01/21 11:58 Last Admin: 01/01/21 12:08 Dose: 4 mg Documented by: Ondansetron HCl (Ondansetron 4 Mg/2 Ml Sdv) 4 mg IVPUSH ONETIME ONE Stop: 01/01/21 11:57 Last Admin: 01/01/21 12:08 Dose: 4 mg Documented by: Potassium Chloride (Potassium Chloride 10% 20 Meq/15 Ml Soln 30 Ml Ud Cup) 40 meq PO ONETIME ONE Stop: 01/02/21 22:23 Last Admin: 01/02/21 23:30 Dose: 40 meq Documented by: Sodium Phosphate (Phosphorus #1 250 Mg Tab) 250 mg PO ONETIME ONE Stop: 01/02/21 22:23 Last Admin: 01/02/21 23:29 Dose: 250 mg Documented by:
[2021-01-03] MEDS: Insulin Aspart 100 Units/ML 3 ML Pen SUBCUT SCH (10:26)
== END 2021-01-03 12:34 | disposition home or self-care (01) | DRG 439 ==
LOC: MW.ED 11:31 → MW.MS 15:26
PROVIDERS: ADMIT Student in an Organized Health Care Education/Training Program; ATTEND Student in an Organized Health Care Education/Training Program
DX: K85.90 Acute pancreatitis without necrosis or infection, unspecified (principal); K85.30 Drug induced acute pancreatitis without necrosis or infection; Z68.41 Body mass index [BMI] 40.0-44.9, adult; T38.3X5A Adverse effect of insulin and oral hypoglycemic [antidiabetic] drugs, initial encounter; R00.1 Bradycardia, unspecified; E66.9 Obesity, unspecified; E11.9 Type 2 diabetes mellitus without complications; Z79.899 Other long term (current) drug therapy; M10.9 Gout, unspecified; I10 Essential (primary) hypertension; E03.9 Hypothyroidism, unspecified; R16.0 Hepatomegaly, not elsewhere classified; Z88.5 Allergy status to narcotic agent; Z79.4 Long term (current) use of insulin; Z20.822 Contact with and (suspected) exposure to COVID-19
CPT/HCPCS: 0240U; 36415; 71045; 71045-26; 74177; 74177-26; 76705; 76705-26; 80053; 80061; 81003; 82150; 82947; 83690; 83735; 84100; 84484; 85025; 93005; 93010; 96374; 96375; 99284; 99285-25; A9270-GY; C9113; J1170; J1644; J1815-GY; J1885; J2060; J2270; J2405; J7030; J7120; Q9967

== ENCOUNTER 2021-08-23 18:38 | Emergency (ER) | payer OTHER ==
[2021-08-23] MEDS ORDERED: Sodium Chloride 0.9% 1,000 ML IV ONE (20:52)
--- NOTE | 2021-08-23 21:43 | EDM.PDOC ---
ED HPI GENERAL MEDICAL PROBLEM - General Chief Complaint: Abdominal Pain Stated Complaint: RECENT GASTRIC BYPASS, LOWER ABDOMINAL PAIN Time Seen by Provider: 08/23/21 20:41 Source of Information: Reports: Patient History Limitations: Reports: No Limitations - History of Present Illness INITIAL COMMENTS - FREE TEXT/NARRATIVE: HISTORY AND PHYSICAL: History of present illness: The patient is a 61-year-old male with a history of gastric bypass on 06/26/2021 who presents to the emergency department with complaints of left upper quad pain that radiates to the epigastric area for the last 7 days. Patient states that he was on the road and working and could not get the abdominal pain checked out at that time. He had been taking half a bottle of Pepto-Bismol which helped somewhat. He states that he has a decreased appetite but no nausea. The patient only takes Tylenol [id number] to help with joint pain. Patient states at this present time he feels a little bit better and when he pushes on his abdomen it tends to make the pain better. Patient said that he contacted his gastric bypass surgeon who stated that he should come to the emergency department and be evaluated. Patient denies any fever, chills, headache, change in vision, syncope or near syncope. Denies any chest pain, back pain, shortness of breath or cough. Denies any nausea, vomiting, diarrhea, constipation or dysuria. Has not noted any blood in urine or stool. Review of systems: As per history of present illness and below otherwise all systems reviewed and negative. Past medical history: As per history of present illness and as reviewed below otherwise noncontributory. Surgical history: As per history of present illness and as reviewed below otherwise noncontributory. Social history: See social history for further information Family history: As per history of present illness and as reviewed below otherwise noncontributory. Physical exam: General: Well developed and well nourished. Alert and orientated x 3. Nontoxic in appearance and in no acute distress. Vital signs are stable and have been reviewed by me. Nursing notes were reviewed. HEENT: Atraumatic, normocephalic, pupils equal and reactive bilaterally, negative for conjunctival pallor or scleral icterus, mucous membranes moist, TMs normal bilaterally, throat clear, neck supple, nontender, trachea midline. No drooling or trismus noted. No meningeal signs. No hot potato voice noted. Lungs: Clear to auscultation bilaterally. No wheezes, rales, or rhonchi. Chest nontender. Normal work of breathing, no accessory muscles used. Heart: S1S2, regular rate and rhythm without overt murmur, gallops, or rubs. No JVD. No peripheral edema Abdomen: Soft, nondistended, mild left upper quad tenderness. Normoactive bowel sounds. Negative for masses or costovertebral tenderness. Skin: Intact, warm, dry. No lesions or rashes noted. Hematologic: No petechiae or purpra. Mucosa appropriate color and normal nail bed color and refill. Extremities: Atraumatic, moves all extremities per self without difficulty or deficits, negative for cords or calf pain. Neurovascular unremarkable. Neuro: Awake, alert, oriented. Cranial nerves II through XII unremarkable. Cerebellum unremarkable. Motor and sensory unremarkable throughout. Exam nonfocal. Psychiatric: Mood and affect are appropriate. Normal thought process. Answering questions appropriately. Notes: *This patient was seen and evaluated during the 2019 SARS-CoV-2 novel coronavirus pandemic period. Community viral transmission is ongoing at time of this encounter and the emergency department is operating under pandemic response procedures. Stated above the patient is a 61-year-old male who presents to the emergency room with some left upper quad pain. The patient has a history of gastric bypass in June 26, 2021. 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 The patient states that he had been taking about half a bottle of Pepto-Bismol at a time and now has a decreased appetite. Patient is denying nausea at this time and states his pain is not as bad. We will do blood work and a CT. Patient was offered pain medication but states is really not having pain at this time and does not need any medication. The patient is agreeable to the plan. The patient's CBC hemoglobin 12 point. Previous visit the patient's hemoglobin was 13.2 in December 2020. The patient's potassium is. The patient's urine is negative. CT abdomen/pelvis impression: 1. Masslike density along the inferior margin of the proximal excluded stomach. While this may represent a folded, nondistended gastric fundus, 1 exophytic gastric lesion is also possibility. Further evaluation is recommended with contrast enhanced imaging or MRI. 2. Otherwise no acute process demonstrated in the abdomen and pelvis. I spoke with Dr. Buckley at [facility] and he stated that there was nothing acute at this time. He would like for the patient to go home and keep yourself hydrated over the weekend. He would like the patient to follow-up with Dr. Hayes. If patient is unable to tolerate being at home he would like for the patient to go to [facility] so that they can better examine him. Patient is agreeable with this plan. I have talked with the patient about today's findings, in addition to providing specific details for plan of care. Reassessment at the time of disposition demonstrates that the patient is in no acute distress. The patient is stable for discharge, counseling was provided and we discussed in great detail signs and symptoms that would prompt them to return to the Emergency Department. Medication, follow up and supportive care measures were reviewed and discussed. Voices understanding and is agreeable to plan of care. Denies any further questions or concerns at this time. Diagnostics: CBC, CMP, CT, urinalysis Therapeutics: IV fluids Impression: Abdominal pain Plan: 1. You were evaluated today on an emergent basis. Your complaints of left upper quad pain that was episodic and worse when you swallowed was evaluated with blood work which was negative. We did a CT which showed Impression: 1. Masslike density along the inferior margin of the proximal excluded stomach. While this may represent a folded, nondistended gastric fundus, 1 exophytic gastric lesion is also possibility. Further evaluation is recommended with contrast enhanced imaging or MRI. 2. Otherwise no acute process demonstrated in the abdomen and pelvis. I spoke with Dr. Buckley at [facility] and he stated that there was nothing acute at this time. He would like for you to go home and keep yourself hydrated over the weekend. Your then to follow-up with Dr. Hayes. If you go h ome and your pain returns then I suggest that you go to [facility] so that they can better examine you. However if you are unable to go to [facility] please return to our ER. 2. You can alternate Tylenol and ibuprofen as needed for pain and fever management. 3. We encourage you to follow up with your primary care provider and/or recommended specialist in the next few days for re-evaluation and further care/management. 4. If your symptoms should worsen, new symptoms develop or any of the signs and symptoms we discussed should arise please return to the emergency room or call 911 (if needed). Definitive disposition and diagnosis as appropriate pending reevaluation and review of above. - Related Data Allergies Allergy/AdvReac Type Severity Reaction Status Date / Time codeine Allergy Vomiting Verified 01/01/21 16:31 metformin Allergy Other Verified 08/23/21 19:31 Home Meds: Home Meds Gabapentin [Neurontin] 100 mg PO DAILY 08/23/21 [History] Past Medical History HEENT History: Reports: Sinusitis, Other (See Below) Other HEENT History: deviated septum repair Cardiovascular History: Reports: Hypertension Respiratory History: Reports: None Gastrointestinal History: Reports: None Genitourinary History: Reports: None Musculoskeletal History: Reports: Gout Neurological History: Reports: None Endocrine/Metabolic History: Reports: Diabetes, Type II, Hypothyroidism, Obesity/BMI 30+ Hematologic History: Reports: None - Infectious Disease History Infectious Disease History: Reports: None - Past Surgical History HEENT Surgical History: Reports: Naso-Sinus Surgery Cardiovascular Surgical History: Reports: None Respiratory Surgical History: Reports: None GI Surgical History: Reports: None Other GI Surgeries/Procedures: current hospitalization for pancreatits, gastric bypass surgery 06/26/21 Male Surgical History: Reports: None Endocrine Surgical History: Reports: None Musculoskeletal Surgical History: Reports: None Social & Family History - Family History Family Medical History: No Pertinent Family History Cardiac: Reports: PA - Tobacco Use Tobacco Use Status *Q: Never Tobacco User - Caffeine Use Caffeine Use: Reports: None - Recreational Drug Use Recreational Drug Use: No - Living Situation & Occupation Living situation: Reports: Occupation: Employed ED ROS GENERAL - Review of Systems Review Of Systems: Comprehensive ROS is negative, except as noted in HPI. ED EXAM, GI/ABD - Physical Exam Exam: See Below (See dictation) Course - Vital Signs Last Recorded V/S: Last Vital Signs Temp 98.2 F 08/23/21 23:39 Pulse 63 08/23/21 23:39 Resp 18 08/23/21 23:39 BP 145/94 H 08/23/21 23:39 Pulse Ox 100 08/23/21 23:39 - Orders/Labs/Meds Labs: Laboratory Tests 08/23/21 08/23/21 08/23/21 Range/Units 21:37 21:37 21:45 WBC 7.25 (4.0-11.0) K/uL RBC 4.06 L (4.50-5.90) M/uL Hgb 12.1 L (13.0-17.0) g/dL Hct 34.7 L (38.0-50.0) % MCV 85.5 (80.0-98.0) fL MCH 29.8 (27.0-32.0) pg MCHC 34.9 (31.0-37.0) g/dL RDW Std Deviation 41.7 (28.0-62.0) fl RDW Coeff of Len 13 (11.0-15.0) % Plt Count 328 (150-400) K/uL MPV 9.40 (7.40-12.00) fL Neut % (Auto) 43.8 L (48.0-80.0) % Lymph % (Auto) 40.1 H (16.0-40.0) % [place] % (Auto) 11.4 (0.0-15.0) % Eos % (Auto) 4.1 (0.0-7.0) % Baso % (Auto) 0.6 (0.0-1.5) % Neut # (Auto) 3.2 (1.4-5.7) K/uL Lymph # (Auto) 2.9 H (0.6-2.4) K/uL [place] # (Auto) 0.8 (0.0-0.8) K/uL Eos # (Auto) 0.3 (0.0-0.7) K/uL Baso # (Auto) 0.0 (0.0-0.1) K/uL Nucleated RBC % 0.0 /100WBC Nucleated RBCs # 0 K/uL Sodium 140 (136-148) mmol/L Potassium 3.4 L (3.5-5.1) mmol/L Chloride 105 (98-107) mmol/L Carbon Dioxide 23.4 (21.0-32.0) mmol/L BUN 17 (7.0-18.0) mg/dL Creatinine 1.0 (0.8-1.3) mg/dL Est Cr Clr Drug Dosing 83.67 mL/min Estimated GFR (MDRD) > 60.0 ml/min Glucose 101 (74-106) mg/dL Calcium 9.5 (8.5-10.1) mg/dL Total Bilirubin 0.3 (0.2-1.0) mg/dL AST 18 (15-37) IU/L ALT 20 (14-63) IU/L Alkaline Phosphatase 89 (46-116) U/L Troponin I < 0.050 (0.000-0.056) ng/mL Total Protein 7.7 (6.4-8.2) g/dL Albumin 3.5 (3.4-5.0) g/dL Globulin 4.2 H (2.6-4.0) g/dL Albumin/Globulin Ratio 0.8 L (0.9-1.6) Urine Color YELLOW Urine Appearance CLEAR Urine pH 5.5 (5.0-8.0) Ur Specific [place] >= 1.030 (1.001-1.035) Urine Protein NEGATIVE (NEGATIVE) mg/dL Urine Glucose (UA) NEGATIVE (NEGATIVE) mg/dL Urine Ketones NEGATIVE (NEGATIVE) mg/dL Urine Occult Blood NEGATIVE (NEGATIVE) Urine Nitrite NEGATIVE (NEGATIVE) Urine Bilirubin NEGATIVE (NEGATIVE) Urine Urobilinogen 0.2 (<2.0) EU/dL Ur Leukocyte Esterase NEGATIVE (NEGATIVE) Meds: Medications Discontinued Medications Generic Name Dose Route Start Last Admin Trade Name Freq PRN Reason Stop Dose Admin Sodium Chloride 1,000 mls @ 999 mls/hr 08/23/21 20:52 08/23/21 21:39 Normal Saline IV 08/23/21 21:52 999 mls/hr .BOLUS ONE Administration Departure - Departure Time of Disposition: 23:26 Disposition: Home, Self-Care 01 Clinical Impression: Abdominal pain Qualifiers: Abdominal location: left upper quadrant Qualified Code(s): R10.12 - Left upper quadrant pain - Discharge Information *PRESCRIPTION DRUG MONITORING PROGRAM REVIEWED*: Not Applicable *COPY OF PRESCRIPTION DRUG MONITORING REPORT IN PATIENT SINGH: Not Applicable Instructions: Abdominal Pain, Adult, [id number] Referrals: Luke Spann [employer]ECUTIVE [Primary Care Provider] - Forms: ED Department Discharge Additional Instructions: The following information is given to patients seen in the emergency department who are being discharged to home. This information is to outline your options for follow-up care. We provide all patients seen in our emergency department with a follow-up referral. The need for follow-up, as well as the timing and circumstances, are variable depending upon the specifics of your emergency department visit. If you don't have a primary care physician on staff, we will provide you with a referral. We always advise you to contact your personal physician following an emergency department visit to inform them of the circumstance of the visit and for follow-up with them and/or the need for any referrals to a consulting specialist. The emergency department will also refer you to a specialist when appropriate. This referral assures that you have the opportunity for follow-up care with a specialist. All of these measure are taken in an effort to provide you with optimal care, which includes your follow-up. Under all circumstances we always encourage you to contact your private physician who remains a resource for coordinating your care. When calling for follow-up care, please make the office aware that this follow-up is from your recent emergency room visit. If for any reason you are refused follow-up, please contact the [facility] Emergency Department at and asked to speak to the emergency department charge nurse. [facility] [address] [place] [address] [place] [address] Plan: 1. You were evaluated today on an emergent basis. Your complaints of left upper quad pain that was episodic and worse when you swallowed was evaluated with blood work which was negative. We did a CT which showed Impression: 1. Masslike density along the inferior margin of the proximal excluded stomach. While this may represent a folded, nondistended gastric fundus, 1 exophytic gastric lesion is also possibility. Further evaluation is recommended with contrast enhanced imaging or MRI. 2. Otherwise no acute process demonstrated in the abdomen and pelvis. I spoke with Dr. Buckley at [facility] and he stated that there was nothing acute at this time. He would like for you to go home and keep yourself hydrated over the weekend. Your then to follow-up with Dr. Dewing. If you go home and your pain returns then I suggest that you go to [facility] so that they can better examine you. However if you are unable to go to [facility] please return to our ER. 2. You can alternate Tylenol and ibuprofen as needed for pain and fever m anagement. 3. We encourage you to follow up with your primary care provider and/or recommended specialist in the next few days for re-evaluation and further care/management. 4. If your symptoms should worsen, new symptoms develop or any of the signs and symptoms we discussed should arise please return to the emergency room or call 911 (if needed). Sepsis Event Note (ED) - Evaluation Sepsis Screening Result: No Definite Risk
[2021-08-23 22:07] LABS: BLOOD UREA NITROGEN,BUN 17 mg/dL (7.0-18.0); CARBON DIOXIDE,CO2 23.4 mmol/L (21.0-32.0); CHLORIDE,CL 105 mmol/L (98-107); GLUCOSE RANDOM 101 mg/dL (74-106); POTASSIUM,K 3.4 mmol/L (3.5-5.1); SODIUM,NA 140 mmol/L (136-148)
--- NOTE | 2021-08-23 22:19 | PCM.EKG ---
#1 Interpretation EKG Interpretation Comments: EKG performed 08/23/2021 at 9:13 PM shows a sinus rhythm heart rate 60 appears to 98 which is a short ND QT duration [address] and T no prior for comparison although there are prior reports there is no prior EKG available to me. Impression no acute injury.
--- NOTE | 2021-08-23 22:44 | CT ---
Indication: Abdominal pain, 6 weeks post gastric bypass surgery Technique: Nonenhanced axial CT imaging through the abdomen and pelvis. Sagittal and coronal reconstructions are provided. Comparison: CT abdomen pelvis with contrast 01/01/2021 Findings: There is unremarkable noncontrast appearance of the liver, gallbladder, spleen, pancreas, adrenal glands, and kidneys. The abdominal aorta is normal in caliber with scattered atherosclerotic calcification present. No lymphadenopathy is demonstrated in the abdomen or pelvis the urinary bladder, prostate gland, and seminal vesicles are unremarkable. Gastric bypass changes are noted. There is a masslike density along the inferior margin of the proximal excluded stomach. There is no appreciable gastric wall thickening. There is normal caliber of the small bowel. The appendix is noninflamed. There is no colonic wall thickening or mesenteric edema. Degenerative changes are noticed in the lumbar spine and sacroiliac joints. The included lung bases are clear. Impression: 1. Masslike density along the inferior margin of the proximal excluded stomach. While this may represent a folded, nondistended gastric fundus, 1 exophytic gastric lesion is also possibility. Further evaluation is recommended with contrast enhanced imaging or MRI. 2. Otherwise no acute process demonstrated in the abdomen and pelvis. Please note that all CT scans at this facility use dose modulation, iterative reconstruction, and/or weight-based dosing when appropriate to reduce radiation dose to as low as reasonably achievable. Dictated by Evonne Garcia MD @ 08/23/2021 10:41:50 PM (Electronically Signed)
== END 2021-08-23 23:43 | disposition home or self-care (01) ==
LOC: MW.ED 18:38
DX: R10.12 Left upper quadrant pain (principal); I10 Essential (primary) hypertension; E11.9 Type 2 diabetes mellitus without complications; E66.9 Obesity, unspecified; Z68.30 Body mass index [BMI] 30.0-30.9, adult; Z88.5 Allergy status to narcotic agent; Z88.8 Allergy status to other drugs, medicaments and biological substances
CPT/HCPCS: 36415; 74176; 80053; 81003; 84484; 85025; 99284; J7030; 93005

== ENCOUNTER 2022-02-25 08:05 | Day surgery (SDC) | payer OTHER ==
[~2022-02-25 08:05] MED LIST: Lactated Ringers 1,000 ML IV SCH; Sodium Chloride 0.9% 10 ML Syringe FLUSH PRN; Sodium Chloride 0.9% 2.5 ML Syringe FLUSH PRN; Sodium Chloride 0.9% 20 ML SDV IV PRN
[2022-02-25] MEDS ORDERED: Lidocaine 2% 5 ML SDV ONE (08:45)
[2022-02-25] MEDS ORDERED: fentaNYL 100 MCG/2 ML SDV ONE (08:46)
[2022-02-25] MEDS ORDERED: Propofol 200 MG/20 ML SDV ONE (08:46)
== END 2022-02-25 10:10 | disposition home or self-care (01) ==
LOC: MW.SDS 08:05
PROVIDERS: ATTEND Surgery
DX: Z12.11 Encounter for screening for malignant neoplasm of colon (principal); L98.9 Disorder of the skin and subcutaneous tissue, unspecified; I10 Essential (primary) hypertension; E11.9 Type 2 diabetes mellitus without complications; E66.9 Obesity, unspecified; Z88.5 Allergy status to narcotic agent; Z88.8 Allergy status to other drugs, medicaments and biological substances; Z79.899 Other long term (current) drug therapy; Z98.890 Other specified postprocedural states; Z68.34 Body mass index [BMI] 34.0-34.9, adult
CPT/HCPCS: 45378; J2704; J3010; J7120

== ENCOUNTER 2022-04-01 19:52 | Emergency (ER) | payer OTHER ==
[2022-04-01] MEDS ORDERED: Benzocaine 20% Topical Spray UD ONE (22:08)
[2022-04-01] MEDS ORDERED: Ketorolac 30 MG/ML SDV IM ONE (22:11)
[2022-04-01] MEDS ORDERED: Acetaminophen/oxyCODONE 325-10 MG Tab PO ONE (22:11)
[2022-04-01] MEDS ORDERED: Cephalexin 500 MG Cap PO ONE (23:14)
== END 2022-04-01 23:30 | disposition home or self-care (01) ==
LOC: MW.ED 19:52
DX: L60.0 Ingrowing nail (principal); L02.612 Cutaneous abscess of left foot; I10 Essential (primary) hypertension; E11.40 Type 2 diabetes mellitus with diabetic neuropathy, unspecified; E66.9 Obesity, unspecified; Z88.5 Allergy status to narcotic agent; Z88.8 Allergy status to other drugs, medicaments and biological substances; Z68.31 Body mass index [BMI] 31.0-31.9, adult
CPT/HCPCS: 10060; 96372; 99283; A9270; J1885

== ENCOUNTER 2022-04-09 18:07 | Emergency (ER) | payer OTHER ==
[2022-04-09] MEDS ORDERED: Lidocaine 1% 5 ML VIAL INJECT ONE (18:48)
[2022-04-09] MEDS ORDERED: Bacitracin Oint 1 GM U/D Packet TOP ONE (19:06)
== END 2022-04-09 19:38 | disposition home or self-care (01) ==
LOC: MW.ED 18:07
DX: L60.0 Ingrowing nail (principal); L08.9 Local infection of the skin and subcutaneous tissue, unspecified; I10 Essential (primary) hypertension; E66.9 Obesity, unspecified; E11.40 Type 2 diabetes mellitus with diabetic neuropathy, unspecified; Z88.5 Allergy status to narcotic agent; Z88.8 Allergy status to other drugs, medicaments and biological substances; Z79.899 Other long term (current) drug therapy
CPT/HCPCS: 11750; 99283